=== PATIENT | female | born 1970 | race Caucasian/White ===

== ENCOUNTER → 2017-11-30 08:37 | Outpatient (CLI) | payer BC, SELFPAY ==
--- NOTE | 2017-11-30 08:41 | MM_ITS ---
MM Dig screening mamm BI w/CAD CAD Screening COMPARISON: Digital mammograms 10/13/2016 and 09/24/2015 INDICATION: There is a history of breast cancer patient maternal aunt diagnosed in her 40s. There has been a previous biopsy right breast for benign disease. TECHNIQUE: Standard CC and MLO images were obtained. R2 CAD reviewed. FINDINGS: There is a markedly dense and heterogenic parenchymal pattern lessening the sensitivity of mammography. There are diffuse microcalcifications in the central portions of both breast typical of sclerosing adenosis. There is an oval asymmetric density central portion left breast best seen on the CC view and not definitely seen on the MLO view but likely lower central portion of the breast. Recommend follow-up ultrasound left breast for additional evaluation. There are no suspicious microcalcifications. IMPRESSION: Markedly dense parenchymal pattern with possible developing asymmetric density left breast BI-RADS Category: 0 Need Additional Imaging Evaluaiton RECOMMENDED FOLLOW-UP: IMM - IMMEDIATE FOLLOW-UP RECOMMENDED (A letter has been sent to the patient regarding results of the study.)
== END ==
PROVIDERS: PCP Family Medicine; Visit Provider Obstetrics & Gynecology
DX: Z12.31 Encounter for screening mammogram for malignant neoplasm of breast (principal)
CPT/HCPCS: 77067

== ENCOUNTER → 2017-12-21 13:06 | Outpatient (CLI) | payer BC, SELFPAY ==
--- NOTE | 2017-12-21 13:13 | US_ITS ---
US breast LT complete COMPARISON: 11/30/2017 mammogram INDICATION: Follow-up abnormal mammogram ORDERING PHYSICIAN: Eduardo Soni MD PATIENT AGE: 47 years TECHNIQUE: Standard ultrasound of the breast with axilla FINDINGS: Multiple cysts are present involving the left breast the largest at 12:00 measuring 18 x 19 mm somewhat lobular in nature. This likely corresponds to the nodule noted on mammogram. There is an 8 mm cyst at 9:00 15 mm cyst at 11:00 and a 9 mm cyst at 11:00. No suspicious nodules are evident. IMPRESSION: Multiple left breast cysts the largest of which may correspond to the mammographic abnormality. BI-RADS Category: 3 Benign Finding Short Term Follow-up RECOMMENDED FOLLOW-UP: 6M - 6 MONTH FOLLOW-UP recommended 6 month mammographic and sonographic follow-up (A letter has been sent to the patient regarding results of the study.)
== END ==
PROVIDERS: PCP Family Medicine; Visit Provider Obstetrics & Gynecology
DX: R92.8 Other abnormal and inconclusive findings on diagnostic imaging of breast (principal); N63.20 Unspecified lump in the left breast, unspecified quadrant
CPT/HCPCS: 76641

== ENCOUNTER → 2018-05-31 13:01 | Outpatient (CLI) | payer BC, SELFPAY ==
--- NOTE | 2018-05-31 13:03 | MM_ITS ---
MM Dig mamm DX unilat LT CAD, US breast LT complete INDICATION: Follow-up abnormal mammogram, 6 month follow-up ORDERING PHYSICIAN: Eduardo Soni MD PATIENT AGE: 48 years COMPARISON: None TECHNIQUE: Standard images performed with spot compression views and left breast ultrasound FINDINGS: Left mammogram: There is dense fibroglandular tissue decrease in sensitivity of mammography. Scattered multiple benign-appearing calcifications are present. There is a persistent 2.2 cm nodular lesion at 12:00 to to 1:00 similar to the previous exam. Left breast ultrasound: 2.2 x 1.2 cm cyst at 12:00 slightly increased in size compared to the previous exam. There are multiple other cysts including a 6 mm cyst at 12:00, 1 cm complex cyst at 12:00, 9 mm cyst at 3:00, complex 7 mm cyst at 4:00, complex 7 mm cyst at 6:00, 5 mm cyst at 9:00, 12 mm cyst at 11:00 and a 14 mm cyst at 11:00. No suspicious lesions evident. IMPRESSION: No convincing evidence of malignancy. Multiple left breast cysts BI-RADS Category: 2 Benign Finding(s) RECOMMENDED FOLLOW-UP: 6M - 6 MONTH FOLLOW-UP (A letter has been sent to the patient regarding results of the study.)
== END ==
PROVIDERS: PCP Family Medicine; Visit Provider Obstetrics & Gynecology
DX: R92.8 Other abnormal and inconclusive findings on diagnostic imaging of breast (principal)
CPT/HCPCS: 76641; 77065

== ENCOUNTER → 2018-12-06 09:48 | Outpatient (CLI) | payer BC, SELFPAY ==
--- NOTE | 2018-12-06 09:50 | MM_ITS ---
MM Dig screening mamm BI w/CAD CAD Screening COMPARISON: Digital mammograms with CAD 11/30/2017 and 6 month follow-up mammogram left breast 05/31/2018 INDICATION: There is a history of breast cancer patient maternal aunt diagnosed in her 40s. There has been a previous cyst aspiration right breast for benign disease. TECHNIQUE: Standard CC and MLO images were obtained. R2 CAD reviewed. FINDINGS: Prominent diffuse heterogenic fibroglandular densities are seen throughout both breast. The dominant asymmetric density central portion left breast seen on the previous study 11/30/2017 is less prominent on today's study and probably was a cyst which may have spontaneously partially decompressed. Again noted are multiple benign-appearing microcalcifications in each breast most of which appear to be typical of sclerosing adenosis. There is no new or suspicious lesion in either breast and there are no suspicious microcalcifications. There are partially fatty replaced nodes in both axilla. IMPRESSION: Stable dense and heterogenic parenchymal pattern with no suspicious lesion seen BI-RADS Category: 2 Benign Finding(s) RECOMMENDED FOLLOW-UP: 1YR - 1 YEAR FOLLOW-UP (A letter has been sent to the patient regarding results of the study.)
--- NOTE | 2018-12-06 09:50 | US_ITS ---
US transvaginal Ordering Physician: Eduardo Soni MD Patient Age: 48 years: Female HISTORY: ITS.REASON: pelvic painpelvic pain and discomfort. Menopause. Fatigue. LMP 4 years ago. TECHNIQUE: Transvaginal pelvic ultrasound COMPARISON : FINDINGS Uterus is enlarged.. No uterine mass is identified. Uterus Measures 9.9 cm length x 3.4 cm AP x6.7 wide. Endometrial stripe is 6.5 mm AP. Right ovary measures 4.25 cm x 2.6 cm x 3.1 cm. . It contains a dominant cyst which measures up to 2.85 x 2 cm. Along with some a few other tiny follicles. Left ovary measures 3.8 cm x 2.6 cm x 2.7 similar A dominant cyst at the left ovary measures 2.6 x 1.9 cm No fluid in cul-de-sac . IMPRESSION: 1. Uterus is enlarged. No fibroids identified nor appreciated. Moderate endometrial stripe 6.5 mm. 2. Ovaries are generous in size with cyst bilaterally. Right ovary measures up to 4.25 cm maximally & contains a 2.8 cm cyst Left ovary measures up to 3.8 cm and contains a 2.6 cm dominant cyst. No fluid in cul-de-sac
== END ==
PROVIDERS: PCP Family Medicine; Visit Provider Obstetrics & Gynecology
DX: Z12.31 Encounter for screening mammogram for malignant neoplasm of breast (principal); R10.2 Pelvic and perineal pain
CPT/HCPCS: 76830; 77067

== ENCOUNTER → 2019-01-17 13:42 | Outpatient (CLI) | payer BC, SELFPAY ==
--- NOTE | 2019-01-17 13:46 | US_ITS ---
US transvaginal Ordering Physician: Eduardo Soni MD Patient Age: 48 years: Female HISTORY: ITS.REASON: pelvic painc follow-up ultrasound from November enlarged uterus and ovaries. TECHNIQUE: Transvaginal pelvic ultrasound. Pelvic pain history.] MW COMPARISON : Previous pelvic ultrasound from December 06, 2017. Relevant FINDINGS The uterus appears mildly enlarged measuring 10.7 cm in length and 5.2 cm AP X 7.5 cm wide. There is a vague fundal fibroid seen at the uterus identified by the technologist on today's study,-difficult to discern but appears to measure3.6 x 2.6 cm x 3 cm The endometrium appears thickened measuring up to 10 mm AP as seen on the final image. Small simple cyst is seen in each ovary with good blood flow at color Doppler flow to both ovaries. No free fluid in cul-de-sac. Right ovary 3.6 x 2.55 x 2.8 cm A 1.9 x 1.5 cm single dominant cyst at the right ovary laterally On the previous right ovarian cyst cyst measures up to 2.5 cm-likely decreased in size Left ovary 3.25 x 2.3 cm x 2.4 cm. There is a 1.1 cm x 0.9 cm single dominant cyst at the left ovary. IMPRESSION: ... ... Uterus enlarged. 10.7 cm in length x 7.5 cm wide ... Vague poorly delineated Fibroid at the right aspect of fundus felt to be present on today's study. Measuring 3.6 to 2.6 cm. Thickened endometrium measures up to 1.0 cm AP Ovaries appear normal in size.... With Single cyst identified bilaterally: Right ovarian cyst 1.9 x 0.5 cm. Left ovarian cyst 1.1 x 1 cm.
== END ==
PROVIDERS: PCP Family Medicine; Visit Provider Obstetrics & Gynecology
DX: R10.2 Pelvic and perineal pain (principal)
CPT/HCPCS: 76830

== ENCOUNTER → 2019-04-25 13:40 | Outpatient (CLI) | payer BC, SELFPAY ==
--- NOTE | 2019-04-25 13:42 | US_ITS ---
US transvaginal HISTORY: ITS.REASON: PELVIC PAIN ORDERING PHYSICIAN: Eduardo Soni MD PATIENT AGE: 49 years Comparison: 01/17/2019 FINDINGS: The uterus is bulky measuring 11 x 5 x 7 cm. Combined endometrial thickness is 9 mm. Within the central aspect of the endometrial region there is an oval area of slight increase echogenicity measuring 7 mm x 4 mm and may represent a small polyp. A fibroid is present in the fundus at 2.9 cm. The right ovary is 3.2 x 2 cm and contains a 2.6 cm cyst. The left ovary is 3.3 x 2.5 cm and contains a 2 cm cyst. No cul-de-sac fluid is evident. IMPRESSION: Enlarged uterus with fundal fibroid. Possible small endometrial polyp. Bilateral ovarian cysts which is slightly increased in size compared to 01/17/2019
== END ==
PROVIDERS: PCP Registered Nurse; Visit Provider Obstetrics & Gynecology
DX: R10.2 Pelvic and perineal pain (principal)
CPT/HCPCS: 76830

== ENCOUNTER → 2019-06-13 08:07 | Outpatient (CLI) | payer BC, SELFPAY | PROVIDERS: PCP Family Medicine; Visit Provider Family Medicine | DX: I10 Essential (primary) hypertension (principal); R60.9 Edema, unspecified | CPT/HCPCS: 93306 ==

== ENCOUNTER → 2019-08-15 15:14 | Outpatient (CLI) | payer BC, SELFPAY ==
--- NOTE | 2019-08-15 15:16 | MR_ITS ---
PROCEDURE: MR LUMBAR SPINE WO CON CLINICAL INDICATION: ACUTE BILATERAL LOW BACK PAIN WITH RT SIDED SCIATICA Low back pain with right-sided sciatica, right hip and calf pain COMPARISON: No exams were available for comparison TECHNIQUE: Standard multiplanar multiecho sequences are performed without contrast. 3-D MIP and myelographic images are also rendered and reviewed FINDINGS: There is normal alignment. The spinal cord ends at the L1-L2 level. T12-L1, L1-L2, and L2-L3 have an unremarkable appearance. L3-L4: There is minimal foraminal disc protrusion on the left at L3-L4 versus partial volume averaging artifact. L4-5: Mild concentric bulging disc with small central disc protrusion very slightly eccentric to the left abutting the left L5 nerve root. L5-S1: Unremarkable. No extruded herniated disc or canal stenosis. There is a 2.6 cm cystic area in the right pelvic region consistent with an ovarian cyst. There may be a smaller cyst on the left at 1.4 cm. IMPRESSION: 1. L3-L4: There is minimal foraminal disc protrusion on the left at L3-L4 versus partial volume averaging artifact. 2. L4-5: Mild concentric bulging disc with small central disc protrusion very slightly eccentric to the left abutting the left L5 nerve root 3. No extruded herniated disc or canal stenosis Dictated by: Julian Tillman MD 08/17/2019 06:12 Electronically signed by Julian Tillman MD in [place] 08/17/2019 06:12
== END ==
PROVIDERS: PCP Family Medicine; Visit Provider Family Medicine
DX: M54.41 Lumbago with sciatica, right side (principal); M51.36 Other intervertebral disc degeneration, lumbar region
CPT/HCPCS: 72148; 76376

== ENCOUNTER → 2019-09-05 10:14 | Outpatient (POV) | payer BC, SELFPAY ==
[2019-09-05 10:30] VITALS: BP 175/79; PULSE 85; RESP 18; O2SAT 98; BMI 38.9
--- NOTE | 2019-09-05 14:37 | HMH.PMCON ---
Assessment and Plan (1) Degenerative disc disease Current visit: Yes Status: Chronic Qualifiers: Spinal region: lumbar Qualified Code(s): M51.36 - Other intervertebral disc degeneration, lumbar region Category: Medical (2) Radiculopathy due to lumbar intervertebral disc disorder Current visit: Yes Status: Chronic Category: Medical Code(s): M51.16 - Intervertebral disc disorders with radiculopathy, lumbar region - Assessment and plan all Dx Assessment and Plan for all problems:: We will schedule an L4-L5 lumbar epidural steroid injection with the patient I do believe it would be beneficial given her symptomology. She is continuing anti-inflammatories and physical therapy. Patient is not on any anticoagulation therapy. She has no active infections. We will also start the patient on gabapentin 100 mg 1 p.o. nightly. I will follow-up with patient after her injection reassess her symptoms at that time she has been instructed to call the office if she has any issues prior to her next appointment. Dr. Hare has reviewed this note and agrees with this plan of care. This note was dictated using voice recognition software and may contain errors or omissions HPI - Data of Consult Consult date: 09/05/19 Requesting Physician: Dayan Diaz APRN Primary Care Provider: Jairo Rivera MD - Consult Narrative Reason for consult: Back pain, leg pain History of present illness: Ms. Owens is a 49 year old female who presents today for consultation in regards to her low back and leg pain. Patient has had pain for quite some years however recently she is had excruciating low back and right leg pain. Patient states any increased activity increases pain while rest and Aleve decrease pain. Patient has radiation down into her toes. She has numbness and tingling. She currently works at [employer]. Patient has been trying to work however it is becoming harder and harder. She rates her pain a 3 out of 10. She is on an anti-inflammatory. Patient is continuing physical therapy at this time with dry needling and stretching. She is interested in injective therapy. CC: Dayan Diaz APRN [facility] History I have reviewed the patient's past medical history: Yes Medical History: Reports:: Hypertension *Have you ever received a pneumonia vaccine?: Yes *Have you received a flu vaccine this season?: Yes Amputation: No Fractures: No - *Social History Smoking Status: Never smoker Alcohol Intake: never Alcohol Intake Frequency:: other Substance Use Type: denies use *Occupational Status:: employed Housing: house Household Members: other *Travel in the last 8 weeks: None Family Hx:: No significant family history Review of Systems - Review of Systems ROS General: no recent weight change, no fever, no sleep disturbances Respiratory: no cough, no shortness of air, no recurring pulmonary infections Cardiovascular/Peripheral Vascular: No chest pain, No palpitations, no edema, no shortness of breath. Gastrointestinal: no new onset incontinence, normal bowel movements reported Genitourinary: no new onset incontinence Musculoskeletal: Back pain, leg pain Psychiatric: normal mood/ affect, Neurological: [denies new onset weakness in extremities], [denies new onset balance issues] Meds Home Medications Medication Instructions Recorded Confirmed Type estradiol 2 mg tablet 2 mg PO DAILY #30 tab NS 01/18/18 01/31/19 Rx benzonatate 100 mg capsule 100 mg PO TID PRN #30 cap 10/02/18 01/31/19 Rx fenofibrate 160 mg tablet 160 mg PO DAILY 10/02/18 06/18/19 History fluticasone propionate 50 1 spray INTRANASAL DAILY #16 g 10/02/18 01/31/19 Rx mcg/actuation nasal spray,suspension lisinopril 10 mg tablet 10 mg PO DAILY 10/02/18 06/18/19 History medroxyprogesterone 2.5 mg tablet 2.5 mg PO DAILY 10/02/18 01/31/19 History omeprazole 20 mg capsule,delayed 20 mg PO DAILY 10/02/18 06/18/19 History release t
--- NOTE | 2019-09-05 14:40 | P.CONS_ITS ---
Assessment and Plan (1) Degenerative disc disease Current visit: Yes Status: Chronic Qualifiers: Spinal region: lumbar Qualified Code(s): M51.36 - Other intervertebral disc degeneration, lumbar region Category: Medical (2) Radiculopathy due to lumbar intervertebral disc disorder Current visit: Yes Status: Chronic Category: Medical Code(s): M51.16 - Intervertebral disc disorders with radiculopathy, lumbar region - Assessment and plan all Dx Assessment and Plan for all problems:: We will schedule an L4-L5 lumbar epidural steroid injection with the patient I do believe it would be beneficial given her symptomology. She is continuing anti-inflammatories and physical therapy. Patient is not on any anticoagulation therapy. She has no active infections. We will also start the patient on gabapentin 100 mg 1 p.o. nightly. I will follow-up with patient after her injection reassess her symptoms at that time she has been instructed to call the office if she has any issues prior to her next appointment. Dr. Hare has reviewed this note and agrees with this plan of care. This note was dictated using voice recognition software and may contain errors or omissions HPI - Data of Consult Consult date: 09/05/19 Requesting Physician: Dayan Diaz APRN Primary Care Provider: Jairo Rivera MD - Consult Narrative Reason for consult: Back pain, leg pain History of present illness: Ms. Owens is a 49 year old female who presents today for consultation in regards to her low back and leg pain. Patient has had pain for quite some years however recently she is had excruciating low back and right leg pain. Patient states any increased activity increases pain while rest and Aleve decrease pain. Patient has radiation down into her toes. She has numbness and tingling. She currently works at [employer]. Patient has been trying to work however it is becoming harder and harder. She rates her pain a 3 out of 10. She is on an anti-inflammatory. Patient is continuing physical therapy at this time with dry needling and stretching. She is interested in injective therapy. CC: Dayan Diaz APRN [facility] History I have reviewed the patient's past medical history: Yes Medical History: Reports:: Hypertension *Have you ever received a pneumonia vaccine?: Yes *Have you received a flu vaccine this season?: Yes Amputation: No Fractures: No - *Social History Smoking Status: Never smoker Alcohol Intake: never Alcohol Intake Frequency:: other Substance Use Type: denies use *Occupational Status:: employed Housing: house Household Members: other *Travel in the last 8 weeks: None Family Hx:: No significant family history Review of Systems - Review of Systems ROS General: no recent weight change, no fever, no sleep disturbances Respiratory: no cough, no shortness of air, no recurring pulmonary infections Cardiovascular/Peripheral Vascular: No chest pain, No palpitations, no edema, no shortness of breath. Gastrointestinal: no new onset incontinence, normal bowel movements reported Genitourinary: no new onset incontinence Musculoskeletal: Back pain, leg pain Psychiatric: normal mood/ affect, Neurological: [denies new onset weakness in extremities], [denies new onset balance issues] Meds Home Medications Medication Instructions Recorded Confirmed Type estradiol 2 mg tablet 2 mg PO DAILY #30 tab NS 01/18/18 01/31/19 Rx benzonatate 100 mg capsule 100 mg PO TID PRN #30
== END ==
PROVIDERS: PCP Family Medicine; Visit Provider Clinical Nurse Specialist Family Health
DX: M51.16 Intervertebral disc disorders with radiculopathy, lumbar region (principal)
CPT/HCPCS: 99202

== ENCOUNTER → 2019-10-17 11:22 | Outpatient (POV) | payer BC, SELFPAY ==
--- NOTE | 2019-10-17 11:41 | HMH.PAINSOAP ---
[facility] Pain Management SOAP Note Subjective:: Patient is a pleasant 49-year-old white female who presents today for follow-up after a lumbar epidural steroid injection at L4-L5. She is being treated for low back pain with lumbar radiculopathy symptoms. Patient says that she got approximately 90% relief following her epidural steroid injection, however, patient does say her pain has returned. She says she got approximately 2 weeks of relief. Patient rates her pain a 3 out of 10 today. She says her pain is a low when she is sitting. She says her pain does return when she is walking or standing. 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 This is when her pain increases. Patient says that she is interested in doing a series of injections to see if she can get longer relief. She has been taking naproxen at home and says it has helped her some relief. Patient was also prescribed gabapentin 100 mg 1 tablet p.o. at bedtime at her last visit. Patient says that she has not taken this for fear that it would make her too sleepy. She says her pain is radiating into her right leg causing numbness and tingling. SHe is continuing with a home stretching program. Review of Systems General: No recent weight changes, no fever, no sleep disturbances Respiratory: No cough, no shortness of air, no recurring pulmonary infections Cardiovascular/peripheral vascular: No chest pain, no palpitations, no edema, no shortness of breath Gastrointestinal: No new onset incontinence, normal bowel movements reported Genitourinary: No new onset incontinence Musculoskeletal: Low back pain, right leg pain Psychiatric: Normal mood/affect Neurological: [Denies weakness in extremities], [denies balance issues] Objective:: Physical exam General: Alert and oriented x3, no acute distress, pleasant and cooperative, [on room air] Lungs: Respirations even and unlabored, symmetrical chest expansion Eyes: PERRL Musculoskeletal: Flexion and extension of lumbar spine somewhat guarded secondary to pain, deep tendon reflexes normal, strength in upper and lower extremities [5/5], [abnormal gait noted] Neurological: Speech clear, 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 She is not on any anticoagulation therapy. She will continue with a home stretching program. We will also order the patient diclofenac 75 mg 1 tablet p.o. twice daily. She has been instructed to not continue taking naproxen with her diclofenac. The patient is in agreement. We will see her back in the clinic following her injection to reassess her symptoms. Patient is also been instructed to take her gabapentin at bedtime to see if she gets relief with her numbness and tingling to her right leg. Patient has been instructed to contact the clinic if she has any concerns before her next appointment. Dr. Hare has reviewed this note and agrees with this plan of care. This note was dictated using voice recognition software and make contain errors or omissions. [facility] History I have reviewed the patient's past medical history: Yes Medical History: Reports:: Hyperlipidemia, Hypertension Denies:: Diabetes Mellitus Type 1, Diabetes Mellitus Type 2, Seizures *Have you ever received a pneumonia vaccine?: No *Have you received a flu vaccine this season?: No Amputation: No Fractures: No - *Social History Smoking Status: Never smoker Alcohol Intake: never Alcohol Intake Frequency:: other Substance Use Type: denies use *Occupational Status:: employed Housing: house Household Members: spouse, children *Travel in the last 8 weeks: None Family Hx:: No significant family history
[2019-10-17 11:44] VITALS: BP 194/85; PULSE 78; RESP 18; O2SAT 99; BMI 31.3
== END ==
PROVIDERS: PCP Family Medicine; Visit Provider Clinical Nurse Specialist Family Health
DX: M51.16 Intervertebral disc disorders with radiculopathy, lumbar region (principal)
CPT/HCPCS: 99212

== ENCOUNTER → 2019-11-07 13:13 | Outpatient (CLI) | payer BC, SELFPAY ==
--- NOTE | 2019-11-07 13:14 | US_ITS ---
PROCEDURE: US TRANSVAGINAL CLINICAL INDICATION: pelvic pain COMPARISON: TRANVAG US transvaginal from 04/25/2019 FINDINGS: UTERUS: 7.7 x 5.3x 11.4 centimeter with a combined endometrial thickness of 1.51 LEFT OVARY: 2.1x2.7x2.2 with a volume of 6.9ml. RIGHT OVARY: 3.2x 4.7x2.4 with a volume of 21.4. Cystic lesion in the right adnexa 2.1 x 1.6 x 2.1 centimeters is noted and there is a septated complicated right ovarian cyst 1.8 x 1.7 x 2.0 centimeters. Functional ovarian cysts may be responsible. Follow-up is recommended in attempt to document resolution and exclude cystic neoplasm or endometrioma. An focal endometrial echogenicity possibly endometrial polyp 7.0 x 5.8 millimeters is apparent. Fundal fibroid 3.7 x 3.2 x 2.8 centimeters is noted. This measured approximately 3.6 x 2.6 centimeters on previous exam 01/17/2019. IMPRESSION: Continued uterine fibroid. Right adnexal cystic lesions likely of ovarian origin. Continued follow-up recommended. Possible endometrial polyp. Dictated by: Real Truong 11/07/2019 17:10 Electronically signed by Real Truong in [place] 11/07/2019 17:10
== END ==
PROVIDERS: PCP Family Medicine; Visit Provider Obstetrics & Gynecology
DX: R10.2 Pelvic and perineal pain (principal)
CPT/HCPCS: 76830

== ENCOUNTER → 2019-11-21 10:02 | Outpatient (POV) | payer BC, SELFPAY ==
[2019-11-21 10:18] VITALS: BP 175/80; PULSE 71; RESP 18; O2SAT 99; BMI 37.2
--- NOTE | 2019-11-21 10:43 | HMH.PAINSOAP ---
[facility] Pain Management SOAP Note Subjective:: Patient is a pleasant 49-year-old white female who presents today for follow-up after lumbar epidural steroid injection. This is her second injection. Patient states that she did not get much relief from it. However she is having a new more focal low back pain. She is not having any radicular symptoms anymore in regards to her legs. Patient does have a positive Kemps sign and facet loading her lumbar spine. Patient may be a candidate for neurotomy. She rates her pain today a 5 out of 10. Mostly in her low back. ROS General: no recent weight change, no fever, no sleep disturbances Respiratory: no cough, no shortness of air, no recurring pulmonary infections Cardiovascular/Peripheral Vascular: No chest pain, No palpitations, no edema, no shortness of breath. Gastrointestinal: no new onset incontinence, normal bowel movements reported Genitourinary: no new onset incontinence Musculoskeletal: Back pain Psychiatric: normal mood/ affect Neurological: [denies new onset weakness in extremities], [denies new onset balance issues] Objective:: Physical Exam General: Alert and oriented x3, no acute distress, pleasant and cooperative, [on room air] Lungs: Resps E/U, Symmetrical chest expansion, Eyes: PERRL Musculoskeletal: Flexion and extension of lumbar spine somewhat guarded secondary to pain, deep tendon reflexes normal, strength in upper and lower extremities [5/5], slightly antalgic gait noted Neurological: speech clear, global sales director equal, no gross sensory deficits Assessment:: 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 Patient understands that this is diagnostic in nature. She is continuing a home stretching program. She is failed other modalities of treatment including physical therapy and anti-inflammatories along with medications. She is continuing gabapentin 100 mg 1 p.o. nightly she states it is beneficial she and I discussed adding 1 more pill in the morning she is going to try this and see if it is beneficial. I will follow-up with her after injection reassess her symptoms at that time she has been instructed to call the office if she has any issues prior to her next appointment. She is not on any anticoagulation therapy. Dr. Hare has reviewed this note and agrees with this plan of care. This note was dictated using voice recognition software and may contain errors or omissions [facility] History I have reviewed the patient's past medical history: Yes Medical History: Reports:: Hyperlipidemia, Hypertension Denies:: Cancer, Diabetes Mellitus Type 1, Diabetes Mellitus Type 2, Seizures *Have you ever received a pneumonia vaccine?: Yes *Have you received a flu vaccine this season?: Yes Other Surgeries: Yes: Amputation: No Fractures: No - *Social History Smoking Status: Never smoker Alcohol Intake: never Alcohol Intake Frequency:: other Substance Use Type: denies use *Occupational Status:: other Housing: house Household Members: spouse, children *Travel in the last 8 weeks: None Family Hx:: No significant family history
== END ==
PROVIDERS: PCP Family Medicine; Visit Provider Clinical Nurse Specialist Family Health
DX: M51.16 Intervertebral disc disorders with radiculopathy, lumbar region (principal); M47.816 Spondylosis without myelopathy or radiculopathy, lumbar region; M54.06 Panniculitis affecting regions of neck and back, lumbar region; Z79.899 Other long term (current) drug therapy
CPT/HCPCS: 99212

== ENCOUNTER → 2019-12-22 09:07 | Outpatient (CLI) | payer BC, SELFPAY ==
[2019-12-22 09:39] LABS: Basophils # 0.1 K/mm3 (0-0.2); Basophils % 0.8 % (0.1-2.0); Eosinophils # 0.2 K/mm3 (0.0-0.4); Eosinophils % 2.8 % (0.1-12.0); Hematocrit 39.2 % (37.0-47.0); Hemoglobin 12.7 g/dL (12.2-16.2); Lymphocytes # 1.7 K/mm3 (0.7-4.5); Lymphocytes % 21.3 % (10-50); Mean Corpuscular HGB Conc 32.3 g/dL (31.8-35.4); Monocytes # 0.4 K/mm3 (0.1-1.0); Monocytes % 5.2 % (1.7-9.3); Neutrophils # 5.5 K/mm3 (1.8-7.8); Neutrophils % 69.8 % (37.0-80.0); Platelet Count 412 K/mm3 (142-424); Red Blood Count 4.22 M/mm3 (4.20-5.40); Red Cell Distribution Width 13.2 % (11.5-17.5); Urine Pregnancy, HCG Qual. Negative (Negative); White Blood Count 7.9 K/mm3 (4.8-10.8)
[2019-12-22 10:11] LABS: Chloride 102 mmol/L (98-107); Potassium 4.4 mmoL/L (3.5-5.1); Sodium 139 mmol/L (136-145)
[2019-12-22 10:13] LABS: Alanine Aminotransferase 36 U/L (12-78); Aspartate Amino Transferase 40 U/L (14-36); Blood Urea Nitrogen 23 mg/dl (7-17); Estimated Glomerular Filt Rate 89 ml/min (>60); GFR (African American) 108 ML/MIN (>60)
[2019-12-22 10:14] LABS: Albumin Level 4.5 g/dl (3.5-5.0); Albumin/Globulin Ratio 1.7 (1.1-1.8); Alkaline Phosphatase 75 U/L (38-126); Anion Gap 13.4 mEq/L (5-15); Bilirubin,Total 0.4 mg/dl (0.2-1.3); Calcium 9.7 mg/dl (8.4-10.2); Carbon Dioxide 28 mmol/L (22.0-30.0); Globulin 2.6 g/dL (1.3-3.2); Glucose 131 mg/dl (74-100); Total Protein,Serum 7.1 g/dl (6.3-8.2)
== END ==
PROVIDERS: Visit Provider Obstetrics & Gynecology
DX: Z01.818 Encounter for other preprocedural examination (principal)
CPT/HCPCS: 36415; 80053; 81025; 85025

== ENCOUNTER → 2020-01-02 14:48 | Outpatient (POV) | payer BC, SELFPAY ==
[2020-01-02 15:32] VITALS: BP 189/92; PULSE 79; RESP 18; O2SAT 99; BMI 40.2
--- NOTE | 2020-01-03 08:43 | HMH.PAINSOAP ---
[facility] Pain Management SOAP Note Subjective:: Patient is a pleasant 49-year-old white female who presents today for follow-up after her medial branch block at L4-L5 L5-S1. Patient did extremely well with that she got over 80% relief of her symptoms. She rates her pain today 4 out of 10. Patient is a neurotomy candidate. She is interested in moving forward with this process. I discussed with the patient we may have to repeat medial branch blocks prior to this per insurance regulations. She is also on gabapentin 100 mg which is not very beneficial for her. We discussed increasing this until we can have her injection scheduled. She is not on any anticoagulation therapy. She does have a positive Kemps test. Her pain is extremely focal in nature. ROS General: no recent weight change, no fever, no sleep disturbances Respiratory: no cough, no shortness of air, no recurring pulmonary infections Cardiovascular/Peripheral Vascular: No chest pain, No palpitations, no edema, no shortness of breath. Gastrointestinal: no new onset incontinence, normal bowel movements reported Genitourinary: no new onset incontinence Musculoskeletal: Back pain Psychiatric: normal mood/ affect Neurological: [denies new onset weakness in extremities], [denies new onset balance issues] Objective:: Physical Exam General: Alert and oriented x3, no acute distress, pleasant and cooperative, [on room air] Lungs: Resps E/U, Symmetrical chest expansion, Eyes: PERRL Musculoskeletal: Flexion and extension of lumbar spine somewhat guarded secondary to pain, deep tendon reflexes normal, strength in upper and lower extremities [5/5], normal gait noted, Positive Kemps test, positive facet loading Neurological: speech clear, relief man equal, no gross sensory deficits Assessment:: Degenerative disc disease lumbar spine with lumbar spondylosis facet arthropathy lumbar spine Plan:: We will repeat the L4-L5 L5-S1 bilateral medial branch blocks given the efficacy of the last one I do believe it would be beneficial. She is a neurotomy candidate. She is not on any anticoagulation therapy. We will also increase her gabapentin to 3 mg 1 p.o. 3 times daily. Patient's been instructed to call the office if she has any issues prior to her next appointment. Dr. Hare has reviewed this note and agrees with this plan of care. This note was dictated using voice recognition software and may contain errors or omissions [facility] History I have reviewed the patient's past medical history: Yes Medical History: Reports:: Hyperlipidemia, Hypertension Denies:: Cancer, Diabetes Mellitus Type 1, Diabetes Mellitus Type 2, Seizures *Have you ever received a pneumonia vaccine?: Yes *Have you received a flu vaccine this season?: Yes Other Surgeries: Yes: Amputation: No Fractures: No - *Social History Smoking Status: Never smoker Alcohol Intake: never Alcohol Intake Frequency:: other Substance Use Type: denies use *Occupational Status:: other Housing: house Household Members: spouse, children *Travel in the last 8 weeks: None Family Hx:: No significant family history
== END ==
PROVIDERS: PCP Family Medicine; Visit Provider Clinical Nurse Specialist Family Health
DX: M51.36 Other intervertebral disc degeneration, lumbar region (principal); M54.06 Panniculitis affecting regions of neck and back, lumbar region; M47.816 Spondylosis without myelopathy or radiculopathy, lumbar region
CPT/HCPCS: 99212

== ENCOUNTER 2020-03-23 09:28 | Day surgery (SDC) | payer BC, SELFPAY ==
[2020-03-23 09:50] VITALS: BP 190/80; PULSE 80; RESP 18; O2SAT 98; BMI 38.9
[2020-03-23 10:24] VITALS: BP 178/89; PULSE 78; RESP 18; TEMP 36.7; O2SAT 98
[2020-03-23 10:25] VITALS: BP 174/78; PULSE 88; RESP 18; O2SAT 99
[2020-03-23 10:40] VITALS: BP 171/82; PULSE 74; RESP 18; O2SAT 98
--- NOTE | 2020-03-23 10:52 | HMH.PMPROC ---
- Procedure Date: 03/23/20 Time: 10:53 Anesthesiologist:: Bean Hare MD Complications:: None Pre-procedure Diagnosis:: Degenerative disc disease of lumbar spine with lumbar spondylosis and facet arthropathy of lumbar spine Post-procedure Diagnosis:: Same Indications for Procedure:: This patient is a pleasant 50-year-old white female who we are treating for low back pain with lumbar spondylosis and facet arthropathy of lumbar spine. She is done very well with previous medial branch blocks of L4-5 and L5-S1 bilaterally. She was 80 to 90% better. She presents for repeat bilateral lumbar medial branch blocks of L4-5 and L5-S1 today. Procedure Details:: Lumbar medial branch block Informed consent was obtained and the risks and benefits of the procedure was explained to the patient. The back was prepped using ChloraPrep. The skin and subcutaneous tissues were anesthetized using lidocaine. I placed 22-gauge spinal needles into the facet joint/medial branches of L4-L5 and L5-S1 bilaterally. Needle placement was confirmed with dye. After this we injected 3 mL bupivacaine 0.25% and Depo-Medrol 20 mg into each facet joint/medial branch of L4-L5 and L5-S1 bilaterally. We used a total of 80 mg Depo-Medrol for both levels bilaterally. The patient tolerated the procedure well with no complications. Plan and Disposition:: We will follow-up with her in 2 weeks. Will reevaluate symptoms at that time.
== END 2020-03-23 10:40 | disposition home or self-care (01) ==
LOC: SC.PAINP 09:28
PROVIDERS: PCP Family Medicine; Visit Provider Anesthesiology
DX: M51.36 Other intervertebral disc degeneration, lumbar region (principal); M12.88 Other specific arthropathies, not elsewhere classified, other specified site; M47.816 Spondylosis without myelopathy or radiculopathy, lumbar region; I10 Essential (primary) hypertension; E78.5 Hyperlipidemia, unspecified
CPT/HCPCS: 64493; 64494; J1030; Q9966

== ENCOUNTER → 2020-04-09 10:07 | Outpatient (POV) | payer BC, SELFPAY ==
[2020-04-09 10:24] VITALS: BP 191/93; PULSE 85; RESP 18; TEMP 36.6; O2SAT 99; BMI 39.8
--- NOTE | 2020-04-09 10:54 | P.CONS_ITS ---
[facility] Pain Management SOAP Note Subjective:: Patient is a pleasant 50-year-old white female who presents today for follow-up after second medial branch block at L4-L5 L5-S1 bilaterally. She got 80% relief of her symptomology. She rates her pain today 2 out of 10. Patient has had 2 medial branch blocks and is a neurotomy candidate we will move forward with a RFA. She is not on any anticoagulation therapy. She is tried and failed conservative therapies including medications and anti-inflammatories. She is also tried and failed physical therapy and is continuing a home stretching program. She is also on gabapentin 300 mg 1 p.o. 3 times daily. We will refill this for her. She denies side effects from this. [facility] #[id number] reviewed and appropriate. ROS General: no recent weight change, no fever, no sleep disturbances Respiratory: no cough, no shortness of air, no recurring pulmonary infections Cardiovascular/Peripheral Vascular: No chest pain, No palpitations, no edema, no shortness of breath. Gastrointestinal: no new onset incontinence, normal bowel movements reported Genitourinary: no new onset incontinence Musculoskeletal: Back pain Psychiatric: normal mood/ affect Neurological: [denies new onset weakness in extremities], [denies new onset balance issues] Objective:: Physical Exam General: Alert and oriented x3, no acute distress, pleasant and cooperative, Lungs: Resps E/U, Symmetrical chest expansion, Eyes: PERRL Musculoskeletal: Flexion and extension of lumbar spine somewhat guarded secondary to pain, deep tendon reflexes normal, strength in upper and lower extremities [5/5], antalgic gait noted, positive facet loading lumbar spine Neurological: speech clear, strategic procurement manager equal, no gross sensory deficits Assessment:: Degenerative disc disease lumbar spine lumbar spondylosis facet arthropathy of lumbar spine Plan:: We will move forward with a L4-L5 L5-S1 radiofrequency ablation bilaterally. We will start with the right side and then 2 weeks later we will do the left side. I will follow-up with her after her ablation and reassess her symptoms at that time she has been instructed to call the office if she has any issues prior to her next appointment. We will continue her gabapentin 300 mg [address] p[address] Hare has reviewed this note and agrees with this plan of care. This note was dictated using voice recognition software and may contain errors or omissions [facility] History I have reviewed the patient's past medical history: Yes Medical History: Reports:: Diabetes Mellitus Type 2, Hyperlipidemia, Hypertension Denies:: Cancer, Diabetes Mellitus Type 1, MRSA, Seizures *Have you ever received a pneumonia vaccine?: Yes *Have you received a flu vaccine this season?: Yes Other Surgeries: Yes: Amputation: No Fractures: No - *Social History Smoking Status: Never smoker Alcohol Intake: never Alcohol Intake Frequency:: other Substance Use Type: denies use *Occupational Status:: other Housing: house Household Members: spouse, children *Travel in the last 8 weeks: None Family Hx:: No significant family history
== END ==
PROVIDERS: PCP Family Medicine; Visit Provider Clinical Nurse Specialist Family Health
DX: M51.36 Other intervertebral disc degeneration, lumbar region (principal); M47.816 Spondylosis without myelopathy or radiculopathy, lumbar region; M12.88 Other specific arthropathies, not elsewhere classified, other specified site
CPT/HCPCS: 99212

== ENCOUNTER 2020-04-27 11:13 | Day surgery (SDC) | payer BC, SELFPAY ==
[2020-04-27 11:40] VITALS: BP 190/84; PULSE 86; RESP 18; TEMP 36.3; O2SAT 96; BMI 39.3
--- NOTE | 2020-04-27 12:04 | HMH.PMPROC ---
- Procedure Date: 04/27/20 Time: 12:04 Anesthesiologist:: Bean Hare MD Complications:: None Pre-procedure Diagnosis:: Degenerative disc disease of lumbar spine with lumbar spondylosis and facet arthropathy of lumbar spine Post-procedure Diagnosis:: Same Indications for Procedure:: This patient is a pleasant 50-year-old white female who we are treating for low back pain with lumbar spondylosis and facet arthropathy of lumbar spine. She did well after medial branch blocks with 80% relief in her pain symptoms. Her pain is starting to return we will do radiofrequency ablation to the facet joint/medial branches of L4-5 and L5-S1 the right side today. Procedure Details:: Lumbar RFA informed consent was obtained and the risk and benefits of the procedure was explained to the patient. Patient was placed prone on the procedure table. The patient was prepped and draped in sterile fashion. C-arm fluoroscopy was used to view the lumbar spine. The skin and subcutaneous tissues were anesthetized using lidocaine. I placed 20-gauge RF needles into the facet joints of L4-5 and L5-S1 levels on the right side. We underwent sensory stimulation. There is good sensory stimulation at 0.8 V. We underwent motor stimulation. There is no motor stimulation at 2 V. We then anesthetized these levels with lidocaine and Depo-Medrol. I used a total of 40 mg Depo-Medrol for both levels. I then burned both levels of 4 5 and L5-S1 facet joint/medial branches on the right side for 4 minutes at 80 ?C. Patient tolerated the procedure well with no complication. Plan and Disposition:: We will follow-up with her in 2 weeks. Will reevaluate her symptoms at that time.
[2020-04-27 12:05] VITALS: BP 132/85; PULSE 85; RESP 18
[2020-04-27 12:06] VITALS: BP 132/88; PULSE 85; RESP 18; O2SAT 98
[2020-04-27 12:20] VITALS: BP 168/97; PULSE 78; RESP 20; O2SAT 96
== END 2020-04-27 12:20 | disposition home or self-care (01) ==
LOC: SC.PAINP 11:14
PROVIDERS: PCP Family Medicine; Visit Provider Anesthesiology
DX: M51.36 Other intervertebral disc degeneration, lumbar region (principal); M47.816 Spondylosis without myelopathy or radiculopathy, lumbar region; M12.88 Other specific arthropathies, not elsewhere classified, other specified site; I10 Essential (primary) hypertension; Z88.0 Allergy status to penicillin; Z79.899 Other long term (current) drug therapy; Z79.84 Long term (current) use of oral hypoglycemic drugs
CPT/HCPCS: 64635; 64636; J1040

== ENCOUNTER 2020-05-11 09:52 | Day surgery (SDC) | payer BC, SELFPAY ==
[2020-05-11 10:29] VITALS: BP 171/82; PULSE 73; RESP 18; TEMP 36.6; O2SAT 98; BMI 85.9
[2020-05-11 10:51] VITALS: BP 142/88; PULSE 85; RESP 18; O2SAT 98
--- NOTE | 2020-05-11 10:54 | HMH.PMPROC ---
- Procedure Date: 05/11/20 Time: 10:55 Anesthesiologist:: Bean Hare MD Complications:: None Pre-procedure Diagnosis:: Degenerative disc disease of lumbar spine with lumbar spondylosis and facet arthropathy of lumbar spine Post-procedure Diagnosis:: Same Indications for Procedure:: This patient is a pleasant 50-year-old white female who we are treating for low back pain with lumbar spondylosis and facet arthropathy of lumbar spine. She is status post radiofrequency ablation of the facet joints of L4-5 and L5-S1 on the right side. She is doing very well after this. She still has pain on the left side. She presents for RF ablation to the facet joint/medial branches of L4-5 and L5-S1 left side today. Procedure Details:: Lumbar RFA informed consent was obtained and the risk and benefits of the procedure was explained to the patient. Patient was placed prone on the procedure table. The patient was prepped and draped in sterile fashion. C-arm fluoroscopy was used to view the lumbar spine. The skin and subcutaneous tissues were anesthetized using lidocaine. I placed 20-gauge RF needles into the facet joints of L4-5 and L5-S1 levels on the left side. We underwent sensory stimulation. There is good sensory stimulation at 0.8 V. We underwent motor stimulation. There is no motor stimulation at 2 V. We then anesthetized these levels with lidocaine and Depo-Medrol. I used a total of 40 mg Depo-Medrol for both levels. I then burned both levels of L4-5 and L5-S1 facet joint/medial branches on the left side for 4 minutes at 80 ?C. Patient tolerated the procedure well with no complication. Plan and Disposition:: We will follow-up with her in 1 month. Will reevaluate symptoms at that time.
[2020-05-11 11:10] VITALS: BP 171/81; PULSE 71; RESP 18; O2SAT 98
== END 2020-05-11 11:10 | disposition home or self-care (01) ==
LOC: SC.PAINP 09:54
PROVIDERS: PCP Family Medicine; Visit Provider Anesthesiology
DX: M51.36 Other intervertebral disc degeneration, lumbar region (principal); M47.816 Spondylosis without myelopathy or radiculopathy, lumbar region; M12.88 Other specific arthropathies, not elsewhere classified, other specified site; K21.9 Gastro-esophageal reflux disease without esophagitis; I10 Essential (primary) hypertension; Z88.0 Allergy status to penicillin; Z79.899 Other long term (current) drug therapy
CPT/HCPCS: 64635; 64636; J1040

== ENCOUNTER → 2020-05-28 10:53 | Outpatient (POV) | payer BC, SELFPAY ==
--- NOTE | 2020-05-28 11:44 | HMH.PAINSOAP ---
[facility] Pain Management SOAP Note Subjective:: Is a pleasant 50-year-old white female who we are treating for low back pain with lumbar spondylosis and facet arthropathy lumbar spine. Patient just finished having RFA of the L4-L5 L5-S1 bilaterally. Patient states she rates her pain a 2 out of 10. She has had some increased pain since her procedure however she attributes to potentially her menstrual cycle. Patient and I discussed continuing improvement in regards to her RFA. We will follow-up with her in 1 month and reassess her at that time to ensure that she is doing better than prior to her neurotomy. ROS General: no recent weight change, no fever, no sleep disturbances Respiratory: no cough, no shortness of air, no recurring pulmonary infections Cardiovascular/Peripheral Vascular: No chest pain, No palpitations, no edema, no shortness of breath. Gastrointestinal: no new onset incontinence, normal bowel movements reported Genitourinary: no new onset incontinence Musculoskeletal: Back pain Psychiatric: normal mood/ affect Neurological: [denies new onset weakness in extremities], [denies new onset balance issues] Objective:: Physical Exam General: Alert and oriented x3, no acute distress, pleasant and cooperative, [on room air] Lungs: Resps E/U, Symmetrical chest expansion, Eyes: PERRL Musculoskeletal: Flexion and extension of lumbar spine somewhat guarded secondary to pain, deep tendon reflexes normal, strength in upper and lower extremities [5/5], normal gait noted Neurological: speech clear, business analytics faculty member equal, no gross sensory deficits Assessment:: Degenerative disc disease lumbar spine lumbar spondylosis facet arthropathy. Plan:: We will see the patient back in 4 weeks reassess her symptoms at that time she has been instructed to call the office if she has any issues prior to her next appointment. Dr. Hare has reviewed this note and agrees with this plan of care. This note was dictated using voice recognition software and may contain errors or omissions [facility] History I have reviewed the patient's past medical history: Yes Medical History: Reports:: Diabetes Mellitus Type 2, Hyperlipidemia, Hypertension Denies:: Cancer, Diabetes Mellitus Type 1, MRSA, Seizures *Have you ever received a pneumonia vaccine?: No *Have you received a flu vaccine this season?: No Other Surgeries: Yes: Amputation: No Fractures: No - *Social History Smoking Status: Never smoker Alcohol Intake: never Alcohol Intake Frequency:: other Substance Use Type: denies use *Occupational Status:: employed Housing: house Household Members: spouse, children *Travel in the last 8 weeks: None Family Hx:: No significant family history
[2020-05-28 12:20] VITALS: BP 142/78; PULSE 74; RESP 18; O2SAT 98; BMI 38.9
== END ==
PROVIDERS: PCP Family Medicine; Visit Provider Clinical Nurse Specialist Family Health
DX: M51.36 Other intervertebral disc degeneration, lumbar region (principal); M47.896 Other spondylosis, lumbar region; M12.88 Other specific arthropathies, not elsewhere classified, other specified site
CPT/HCPCS: 99212

== ENCOUNTER → 2020-08-20 09:33 | Outpatient (POV) | payer BC, SELFPAY ==
--- NOTE | 2020-08-20 10:08 | P.CONS_ITS ---
[facility] Pain Management SOAP Note Subjective:: Patient is a pleasant 50-year-old white female who presents today for follow-up after radiofrequency ablation of L4-L5 L5-S1 bilaterally. Patient is doing extremely well rating her pain today a 0 out of 10. She is taking her diclofenac and gabapentin as needed. Overall does not need anything today. ROS General: no recent weight change, no fever, no sleep disturbances Respiratory: no cough, no shortness of air, no recurring pulmonary infections Cardiovascular/Peripheral Vascular: No chest pain, No palpitations, no edema, no shortness of breath. Gastrointestinal: no new onset incontinence, normal bowel movements reported Genitourinary: no new onset incontinence Musculoskeletal: Back pain at times Psychiatric: normal mood/ affect, Neurological: [denies new onset weakness in extremities], [denies new onset balance issues] Objective:: Physical Exam General: Alert and oriented x3, no acute distress, pleasant and cooperative, [on room air] Lungs: Resps E/U, Symmetrical chest expansion, Eyes: PERRL Musculoskeletal: Flexion and extension of lumbar spine somewhat guarded secondary to pain, deep tendon reflexes normal, strength in upper and lower extremities [5/5], normal gait noted Neurological: speech clear, injection specialist equal, no gross sensory deficits Assessment:: Degenerative disc disease lumbar spine lumbar arthropathy, lumbar spondylosis Plan:: We will follow up with the patient on an as-needed basis. We will continue her gabapentin and her diclofenac at this time. In 3 months if she has not followed up we will see her for medication refills. She has been instructed to call the office if she has any issues prior to this. Dr. Hare has reviewed this note and agrees with this plan of care. This note was dictated using voice recognition software and may contain errors or omissions [facility] History I have reviewed the patient's past medical history: Yes Medical History: Reports:: Diabetes Mellitus Type 2, Hyperlipidemia, Hypertension Denies:: Cancer, Diabetes Mellitus Type 1, MRSA, Seizures *Have you ever received a pneumonia vaccine?: Yes *Have you received a flu vaccine this season?: Yes Other Surgeries: Yes: Amputation: No Fractures: No - *Social History Smoking Status: Never smoker Alcohol Intake: never Alcohol Intake Frequency:: other Substance Use Type: denies use *Occupational Status:: other Housing: house Household Members: spouse, children *Travel in the last 8 weeks: None Family Hx:: No significant family history
[2020-08-20 11:24] VITALS: BP 135/78; PULSE 74; RESP 18; O2SAT 98; BMI 39.8
== END ==
PROVIDERS: PCP Family Medicine; Visit Provider Clinical Nurse Specialist Family Health
DX: M51.36 Other intervertebral disc degeneration, lumbar region (principal); M47.816 Spondylosis without myelopathy or radiculopathy, lumbar region; M12.88 Other specific arthropathies, not elsewhere classified, other specified site
CPT/HCPCS: 99212

== ENCOUNTER → 2020-08-27 11:19 | Outpatient (CLI) | payer BC, SELFPAY ==
--- NOTE | 2020-08-27 11:23 | XR_ITS ---
PROCEDURE: XR FINGER RT MIN 2V CLINICAL INDICATION: RT THUMB PAIN COMPARISON: No exams were available for comparison FINDINGS: No fracture or dislocation. No lytic or blastic change. There is normal mineralization. Minimal osteoarthritic changes are present at the interphalangeal joint. No fracture or dislocation. No lytic or blastic change. Other findings:None. IMPRESSION: Minimal osteoarthritis of the interphalangeal joint Dictated by: Julian Tillman MD 08/27/2020 11:38 Julian Tillman MD in [facility] 08/27/2020 11:38
== END ==
PROVIDERS: PCP Family Medicine; Visit Provider Family Medicine
DX: M79.644 Pain in right finger(s) (principal)
CPT/HCPCS: 73140

== ENCOUNTER → 2020-09-03 14:29 | Outpatient (CLI) | payer BC, SELFPAY ==
--- NOTE | 2020-09-03 14:29 | US_ITS ---
PROCEDURE: US TRANSVAGINAL CLINICAL INDICATION: f/u US on right adnexal mass COMPARISON: US TRANVAG US transvaginal from 04/25/2019 FINDINGS: UTERUS: 9cm x 6cmx 4cm with a combined endometrial thickness of 7.6mm. There is an area of heterogeneous echogenicity in the fundal area of the uterus measuring 2.8 cm and may be due to fibroid not significantly changed. LEFT OVARY: [id number] with a volume of 8.4ml. RIGHT OVARY: [id number] with a volume of 7.9ml. There is a 2.5 cm cyst in the right adnexal region adjacent to the right ovary. No cul-de-sac fluid IMPRESSION: No change uterine fibroid. Small right adnexal cyst adjacent to the right ovary not significantly changed Dictated by: Julian Tillman MD 09/03/2020 17:30 Julian Tillman MD in [facility] 09/03/2020 17:30
== END ==
PROVIDERS: PCP Family Medicine; Visit Provider Obstetrics & Gynecology
DX: N94.89 Other specified conditions associated with female genital organs and menstrual cycle (principal)
CPT/HCPCS: 76830

== ENCOUNTER → 2020-09-10 13:08 | Outpatient (CLI) | payer BC, SELFPAY ==
--- NOTE | 2020-09-10 13:08 | MM_ITS ---
PROCEDURE: MM DIG SCREENING MAMM BI W/CAD Digital Breast Tomosynthesis Included CLINICAL INDICATION: Routine Screening Mammgram There is a history of breast cancer in the patient's paternal aunt diagnosed in her 40s and in the patient's mother diagnosed after menopause. There has been a previous biopsy right breast for benign disease. COMPARISON: MG DMSB DIG MAMM-SCREEN LIZZIE from 10/13/2016 MG SCBI MM Dig screening mamm BI w/CAD from 11/30/2017 MG DXLT MM Dig mamm DX unilat LT CAD from 05/31/2018 MG SCBI MM Dig screening mamm BI w/CAD from 12/06/2018 TECHNIQUE: Standard CC and MLO images and 3D Tomosynthesis was obtained. R2 CAD reviewed. FINDINGS: There is a diffusely dense and heterogenic parenchymal pattern bilaterally. There are diffusely scattered microcalcifications throughout each breast the appearance most typical of sclerosing adenosis. There is no new or suspicious lesion in either breast and no suspicious microcalcifications. There is stable nodes right axilla. IMPRESSION: Dense and heterogenic parenchymal pattern with no suspicious lesions seen BI-RAD Category: 2 Benign Finding(s) FOLLOW-UP: 1YR 1 Year Follow-up (A letter has been sent to the patient regarding results of the study.) Dictated by: Dr. Elijah Wheeler MD 09/16/2020 19:59 Dr. Elijah Wheeler MD in [place] 09/16/2020 19:59
== END ==
PROVIDERS: PCP Family Medicine; Visit Provider Obstetrics & Gynecology
DX: Z12.31 Encounter for screening mammogram for malignant neoplasm of breast (principal)
CPT/HCPCS: 77063; 77067

== ENCOUNTER → 2020-11-02 14:25 | Outpatient (CLI) | payer BC, SELFPAY ==
[2020-11-02 16:17] LABS: Basophils # 0.1 K/mm3 (0-0.2); Basophils % 0.6 % (0.1-2.0); Eosinophils # 0.2 K/mm3 (0.0-0.4); Eosinophils % 1.8 % (0.1-12.0); Hemoglobin 14.6 g/dL (12.2-16.2); Lymphocytes # 2.2 K/mm3 (0.7-4.5); Lymphocytes % 25.9 % (10-50); Mean Corpuscular HGB Conc 34.6 g/dL (31.8-35.4); Mean Corpuscular Hemoglobin 30.9 pg (27.0-31.2); Mean Corpuscular Volume 89.1 fl (81-99); Mean Platelet Volume 8.9 fl (7.4-10.4); Monocytes # 0.5 K/mm3 (0.1-1.0); Monocytes % 5.6 % (1.7-9.3); Neutrophils # 5.6 K/mm3 (1.8-7.8); Neutrophils % 66.3 % (37.0-80.0); Platelet Count 385 K/mm3 (142-424); Red Blood Count 4.72 M/mm3 (4.20-5.40); Red Cell Distribution Width 13.8 % (11.5-17.5); White Blood Count 8.5 K/mm3 (4.8-10.8)
[2020-11-02 16:21] LABS: Chloride 102 mmol/L (98-107); Potassium 4.3 mmoL/L (3.5-5.1); Sodium 137 mmol/L (136-145)
[2020-11-02 16:23] LABS: Alanine Aminotransferase 65 U/L (12-78); Alkaline Phosphatase 89 U/L (38-126); Aspartate Amino Transferase 66 U/L (14-36); Bilirubin,Total 0.7 mg/dl (0.2-1.3); Blood Urea Nitrogen 11 mg/dl (7-17); Estimated Glomerular Filt Rate 131 ml/min (>60); GFR (African American) 158 ML/MIN (>60)
[2020-11-02 16:24] LABS: Albumin Level 4.8 g/dl (3.5-5.0); Albumin/Globulin Ratio 1.5 (1.1-1.8); Anion Gap 14.3 mEq/L (5-15); Calcium 10.2 mg/dl (8.4-10.2); Carbon Dioxide 25 mmol/L (22.0-30.0); Cholesterol 192 mg/dl (140-200); Globulin 3.1 g/dL (1.3-3.2); Glucose 140 mg/dl (74-100); HDL Cholesterol 32 mg/dl (40-60); Total Protein,Serum 7.9 g/dl (6.3-8.2); Triglycerides 244 mg/dl (30-150); VLDL Cholesterol 49 mg/dL (0-40)
[2020-11-02 16:36] LABS: Direct LDL Cholesterol 128.64 mg/dL (100-129)
[2020-11-02 16:45] LABS: 25-OH Vitamin D, Total 80.7 ng/mL (30-100); T4 (Thyroxine) 9.3 ug/dl (5.53-11.0)
[2020-11-02 16:55] LABS: Thyroid Stimulating Hormone 1.97 uIU/mL (0.465-4.68)
[2020-11-02 17:18] LABS: Microalbumin/Creatinine Ratio 62.2
[2020-11-02 17:19] LABS: Creatinine,Urine Random 236 mg/dL (Not Estab.)
[2020-11-05 11:17] LABS: C-Peptide 7.2 ng/mL (1.1-4.4)
== END ==
PROVIDERS: Visit Provider Nurse Practitioner Family
DX: E11.9 Type 2 diabetes mellitus without complications (principal); I10 Essential (primary) hypertension; Z79.84 Long term (current) use of oral hypoglycemic drugs; Z68.39 Body mass index [BMI] 39.0-39.9, adult
CPT/HCPCS: 80053; 80061; 82043; 82306; 82570; 83036; 84436; 84443; 84681; 85025

== ENCOUNTER → 2020-11-12 09:56 | Outpatient (CLI) | payer BC, SELFPAY ==
--- NOTE | 2020-11-12 09:56 | US_ITS ---
PROCEDURE: US LIVER CLINICAL INDICATION: elevated ast Elevated liver enzymes COMPARISON: No exams were available for comparison FINDINGS: PANCREAS: Unremarkable. No obvious mass or abnormal fluid collection. No ductal dilatation LIVER: Diffuse increased echogenicity of the liver with poor through transmission of sound consistent with hepatic steatosis. No focal liver lesion demonstrated. There is appropriate direction of blood flow within non dilated portal vein. RIGHT KIDNEY: Unremarkable. Normal size and echogenicity. No hydronephrosis GALLBLADDER: No gallstones, gallbladder wall thickening, pericholecystic fluid, or biliary dilatation. IMPRESSION: Fatty liver otherwise negative right upper quadrant Dictated by: Julian Tillman MD 11/12/2020 19:05 Julian Tillman MD in [facility] 11/12/2020 19:05
--- NOTE | 2020-11-12 09:56 | US_ITS ---
PROCEDURE: US THYROID CLINICAL INDICATION: enlarged thyroid COMPARISON: No exams were available for comparison FINDINGS: Right lobe: 1.2cm x 3.9cm x 1.7cm Left lobe: 1.4cm x 3.5cm x 1.4cm Isthmus: Unremarkable at 3 mm Additional findings: There is a 4 x 2 mm hypoechoic nodule in the right lobe of the thyroid gland medially along the lateral aspect of the isthmus benign-appearing. On the left there is a mixed nodule at 8 x 4 mm TR level 2. Additional 2 mm hypoechoic nodules present in the upper pole on the left IMPRESSION: Small bilateral nodules which are probably benign. Consider 12 month follow-up for confirmation Dictated by: Julian Tillman MD 11/13/2020 12:55 Julian Tillman MD in [place] 11/13/2020 12:55
== END ==
LOC: RAD 09:56
PROVIDERS: PCP Nurse Practitioner Family; Visit Provider Nurse Practitioner Family
DX: E04.9 Nontoxic goiter, unspecified (principal); R74.01 Elevation of levels of liver transaminase levels
CPT/HCPCS: 76536; 76705

== ENCOUNTER → 2020-11-26 08:36 | Outpatient (POV) | payer BC, SELFPAY | PROVIDERS: Visit Provider Nurse Practitioner Family | DX: Z00.00 Encounter for general adult medical examination without abnormal findings (principal) ==

== ENCOUNTER → 2020-12-17 14:56 | Outpatient (CLI) | payer BC, SELFPAY ==
[2020-12-19 14:58] LABS: Thyroid Peroxidase Antibodies <9 IU/mL (0-34)
[2020-12-21 05:26] LABS: Calcitonin <2.0 pg/mL (0.0-5.0)
== END ==
PROVIDERS: Visit Provider Otolaryngology
DX: E04.9 Nontoxic goiter, unspecified (principal)
CPT/HCPCS: 36415; 82308; 86376

== ENCOUNTER → 2021-02-16 12:25 | Outpatient (CLI) | payer BC, SELFPAY ==
[2021-02-16 12:51] LABS: Basophils # 0.1 K/mm3 (0-0.2); Basophils % 1.2 % (0.1-2.0); Eosinophils # 0.1 K/mm3 (0.0-0.4); Eosinophils % 1.8 % (0.1-12.0); Hematocrit 40.7 % (37.0-47.0); Hemoglobin 13.6 g/dL (12.2-16.2); Lymphocytes # 2.2 K/mm3 (0.7-4.5); Lymphocytes % 36.4 % (10-50); Mean Corpuscular HGB Conc 33.6 g/dL (31.8-35.4); Mean Corpuscular Hemoglobin 29.4 pg (27.0-31.2); Mean Corpuscular Volume 87.5 fl (81-99); Mean Platelet Volume 7.9 fl (7.4-10.4); Monocytes # 0.3 K/mm3 (0.1-1.0); Monocytes % 4.6 % (1.7-9.3); Neutrophils # 3.3 K/mm3 (1.8-7.8); Neutrophils % 55.9 % (37.0-80.0); Platelet Count 441 K/mm3 (142-424); Red Blood Count 4.65 M/mm3 (4.20-5.40); White Blood Count 5.9 K/mm3 (4.8-10.8)
[2021-02-16 13:11] LABS: Chloride 105 mmol/L (98-107); Potassium 4.3 mmoL/L (3.5-5.1); Sodium 141 mmol/L (136-145)
[2021-02-16 13:13] LABS: Blood Urea Nitrogen 18 mg/dl (7-17); Estimated Glomerular Filt Rate 106 ml/min (>60); GFR (African American) 128 ML/MIN (>60); HCG Qualitative, Serum Negative (Negative)
[2021-02-16 13:14] LABS: Alanine Aminotransferase 66 U/L (12-78); Albumin Level 4.8 g/dl (3.5-5.0); Albumin/Globulin Ratio 1.8 (1.1-1.8); Alkaline Phosphatase 73 U/L (38-126); Anion Gap 13.3 mEq/L (5-15); Aspartate Amino Transferase 66 U/L (14-36); Bilirubin,Total 0.8 mg/dl (0.2-1.3); Carbon Dioxide 27 mmol/L (22.0-30.0); Globulin 2.6 g/dL (1.3-3.2); Total Protein,Serum 7.4 g/dl (6.3-8.2)
[2021-02-16 13:15] LABS: Calcium 9.7 mg/dl (8.4-10.2); Glucose 124 mg/dl (74-100)
[2021-02-16 13:28] LABS: Coronavirus 19 IgG Antibody Positive (Negative); Coronavirus 19 IgM Antibody Negative (Negative)
== END ==
PROVIDERS: Visit Provider Obstetrics & Gynecology
DX: Z01.818 Encounter for other preprocedural examination (principal); Z20.822 Contact with and (suspected) exposure to COVID-19; N92.0 Excessive and frequent menstruation with regular cycle; N90.89 Other specified noninflammatory disorders of vulva and perineum
CPT/HCPCS: 36415; 80053; 84703; 85025; 86328

== ENCOUNTER 2021-02-18 07:03 | Day surgery (SDC) | payer BC, SELFPAY ==
[2021-02-15 11:38] VITALS: BMI 35.3
[2021-02-18] VITALS (12 sets, daily range): BP systolic 141–148; BP diastolic 62–92; PULSE 72–79; RESP 12–20; TEMP 36.4–42.7; O2SAT 93–97
[2021-02-18 07:37] LABS: POC Glucose,Bedside 127 (70-110)
--- NOTE | 2021-02-18 09:49 | HMH.ANESCL ---
[facility] Anesthesia Checklist - Structural Data Admitted From: Home Planned Operative Procedure/s: d/c hyst, myosure,novasure Consent for Planned Operative Procedure(s) Verified: Yes - Additional verifications Anesthesia Reactions: No Hx Blood Transfusions: No Blood Transfusion Reaction: No - Airway Assessment C-Spine Mobility Assessed: Yes TMJ Mobility Assessed: Yes Dentition: Good Dentition - Neurological Assessment Level of Consciousness: Awake, Alert, Appropriate - Anesthesia Plan Anesthesia Risk discussed: Yes Anesthesia Plan: Verified ASA Class: II Anesthesia Type: General [facility] History I have reviewed the patient's past medical history: Yes Medical History: Reports:: Diabetes Mellitus Type 2, Hyperlipidemia, Hypertension Denies:: Cancer, Diabetes Mellitus Type 1, Internal Pacemaker, MRSA, Seizures *Have you ever received a pneumonia vaccine?: No *Have you received a flu vaccine this season?: No Other Medical History: Reports: Arthritis. Denies: Blood Transfusion Reaction Anesthesia experience/problems:: none Laterality Cases: Right: Lumpectomy Other Surgeries: Yes: No Previous Surgery, , Tubal Ligation. No: Pacemaker Amputation: No Fractures: No - *Social History Last grade of school completed: Advanced degree Smoking Status: Never smoker Alcohol Intake: never Alcohol Intake Frequency:: other Substance Use Type: denies use *Occupational Status:: other Housing: house Household Members: spouse, children *Travel in the last 8 weeks: None Family Hx:: No significant family history
--- NOTE | 2021-02-18 09:50 | P.PN_ITS ---
[facility] Anesthesia Record Part I Intake, IV Amount: 800 Estimated blood loss (mL): 0 Urine output (mL): 0 Blood Pressure: 148/77 SaO2: 94 Pulse Rate: 73 Respiratory Rate: 12 Temperature: 98.6 F Patient is:: Awake, Stable Stable to PACU at:: 09:45
[2021-02-18 10:07] LABS: POC Glucose,Bedside 108 (70-110)
--- NOTE | 2021-02-18 10:15 | HMH.OPNOTE ---
Date of procedure: 02/18/21 Pre-op Diagnosis:: 1. Heavy menstrual bleeding 2. Dysfunctional uterine bleeding 3. Labial skin tag Post-op Diagnosis:: same Procedure performed:: D&C Hysteroscopy with Myosure excision of endometrial polyp Novasure endometrial ablation Excision of labial skin tag Surgeon:: Susy Patiño MD [employer] SUPERVISOR:: John Christensen Anesthesia: GETA Estimated blood loss (mL): 10 Operative findings:: endometrial polyp anterior uterine cavity 5x5mm skin tag left labia majora Operative note:: The patient was taken to the operating room and general anesthesia was administered. She was prepped/draped in lithotomy position. The anterior lip of the cervix was grasped with a single tooth tenaculum and the cervix was dilated with Tejeda dilators of serially increasing size until the external os was able to accomodate the Myosure hysteroscope. The hysteroscope was advanced through the cervix and into the uterine cavity, which was distended with LR. Once the uterus was sufficiently distended, the cavity was evaluated and revealed a lesion on the anterior cavity wall consistent with an endometrial polyp or submucosal fibroid. The Myosure was inserted into the hysteroscope and the lesion was excised successfully and without complication or significant fluid deficit. After the conclusion of this procedure, the Myosure and hysteroscope were removed from the uterus. The uterine cavity sounded to a length of 5cm. The Novasure was inserted through the cervix and expanded to fit the width of the uterus, with a width of 2.6cm. After a successful cavity assessment, the device was deployed and the endometrial ablation was completed in 84 seconds. Once the device had turned off, the Novasure was removed from the uterus and the hysteroscope was reinserted into the uterine cavity. The cavity appeared diffusely cauterized. The hysteroscope was removed from the uterus and all instruments removed from the vagina. The tenaculum site was hemostatic. The skin tag on left labia majora was excised using a 15 blade. The defect was closed with 4-0 monocryl. All sponge/lap/needle/instrument counts correct x2. Total EBL: 10 cc. The patient was taken out of lithotomy position, extubated and taken to the PACU in stable condition. Condition: stable Disposition: PACU Specimens:: 1. endometrial curettings 2. labial skin tag Complications:: none
--- NOTE | 2021-02-18 15:00 | HMH.ANESII ---
[facility] Anesthesia Record Part II Discharge Time: 10:14 Destination: Surgical Day Care (OP Surgery) PACU nurse assessment reviewed?: Yes Patient Condition:: Good Anesthesia Complications:: None Swallowing reflex intact?: Yes Cyanosis?: No Blood Pressure: 143/84 Pulse Rate: 72 Temperature: 98.1 F Mental Status: Alert & Oriented Pain level:: 2 Nausea and/or vomitting:: None Intake, IV Amount: 0
== END 2021-02-18 11:05 | disposition home or self-care (01) ==
LOC: OR 07:04
PROVIDERS: PCP Nurse Practitioner Family; Visit Provider Obstetrics & Gynecology
PROC: (CPT 58563; principal; 2021-02-18 08:30)
PROC: 0U5B7ZZ Destruction of Endometrium, Via Natural or Artificial Opening (ICD-10-PCS; CPT 58353; 2021-02-18 08:30)
DX: N92.0 Excessive and frequent menstruation with regular cycle (principal); N90.89 Other specified noninflammatory disorders of vulva and perineum; N84.0 Polyp of corpus uteri; E11.9 Type 2 diabetes mellitus without complications; E78.5 Hyperlipidemia, unspecified; I10 Essential (primary) hypertension; M19.90 Unspecified osteoarthritis, unspecified site; Z88.0 Allergy status to penicillin; Z79.82 Long term (current) use of aspirin; Z79.899 Other long term (current) drug therapy; Z79.84 Long term (current) use of oral hypoglycemic drugs
CPT/HCPCS: 58563; 11200; 82962; 96374; J2405

== ENCOUNTER → 2021-03-04 14:34 | Outpatient (CLI) | payer BC, SELFPAY ==
[2021-03-04 15:51] LABS: Anion Gap 11.8 mEq/L (5-15); Blood Urea Nitrogen 14 mg/dl (7-17); Calcium 9.9 mg/dl (8.4-10.2); Carbon Dioxide 26 mmol/L (22.0-30.0); Chloride 106 mmol/L (98-107); Estimated Glomerular Filt Rate 88 ml/min (>60); GFR (African American) 107 ML/MIN (>60); Glucose 138 mg/dl (74-100); Potassium 3.8 mmoL/L (3.5-5.1); Sodium 140 mmol/L (136-145)
[2021-03-04 15:57] LABS: C-Reactive Protein 1.8 mg/L (0-4)
[2021-03-04 16:29] LABS: Basophils % 0.6 % (0.1-2.0); Eosinophils # 0.1 K/mm3 (0.0-0.4); Eosinophils % 1.9 % (0.1-12.0); Hemoglobin 13.5 g/dL (12.2-16.2); Lymphocytes # 2.2 K/mm3 (0.7-4.5); Lymphocytes % 30.1 % (10-50); Mean Corpuscular HGB Conc 33.7 g/dL (31.8-35.4); Mean Corpuscular Hemoglobin 29.1 pg (27.0-31.2); Mean Corpuscular Volume 86.1 fl (81-99); Mean Platelet Volume 8.1 fl (7.4-10.4); Monocytes # 0.3 K/mm3 (0.1-1.0); Monocytes % 4.5 % (1.7-9.3); Neutrophils # 4.5 K/mm3 (1.8-7.8); Platelet Count 378 K/mm3 (142-424); Red Blood Count 4.65 M/mm3 (4.20-5.40); Red Cell Distribution Width 13.1 % (11.5-17.5); White Blood Count 7.2 K/mm3 (4.8-10.8)
[2021-03-04 16:33] LABS: Erythrocyte Sedimentation Rate 16 mm/hr (0-30)
== END ==
PROVIDERS: Visit Provider Orthopaedic Surgery
DX: Z01.818 Encounter for other preprocedural examination (principal); R22.31 Localized swelling, mass and lump, right upper limb; I10 Essential (primary) hypertension
CPT/HCPCS: 36415; 80048; 85025; 85651; 86140

== ENCOUNTER → 2021-03-11 15:27 | Outpatient (CLI) | payer BC, SELFPAY ==
[2021-03-11 16:00] LABS: Basophils # 0.1 K/mm3 (0-0.2); Basophils % 0.6 % (0.1-2.0); Eosinophils # 0.2 K/mm3 (0.0-0.4); Hematocrit 38.9 % (37.0-47.0); Hemoglobin 12.8 g/dL (12.2-16.2); Lymphocytes # 2.4 K/mm3 (0.7-4.5); Lymphocytes % 27.3 % (10-50); Mean Corpuscular Hemoglobin 28.7 pg (27.0-31.2); Mean Corpuscular Volume 86.9 fl (81-99); Monocytes # 0.4 K/mm3 (0.1-1.0); Monocytes % 4.5 % (1.7-9.3); Neutrophils # 5.7 K/mm3 (1.8-7.8); Neutrophils % 65.6 % (37.0-80.0); Platelet Count 436 K/mm3 (142-424); Red Blood Count 4.47 M/mm3 (4.20-5.40); Red Cell Distribution Width 12.9 % (11.5-17.5); White Blood Count 8.7 K/mm3 (4.8-10.8)
== END ==
PROVIDERS: Visit Provider Obstetrics & Gynecology
DX: R42 Dizziness and giddiness (principal)
CPT/HCPCS: 36415; 85025

== ENCOUNTER → 2021-06-03 14:30 | Outpatient (CLI) | payer BC, SELFPAY ==
[2021-06-03 15:48] LABS: Basophils # 0.1 K/mm3 (0-0.2); Eosinophils # 0.2 K/mm3 (0.0-0.4); Hematocrit 42.2 % (37.0-47.0); Hemoglobin 14.4 g/dL (12.2-16.2); Lymphocytes # 2.2 K/mm3 (0.7-4.5); Lymphocytes % 28.5 % (10-50); Mean Corpuscular HGB Conc 34.2 g/dL (31.8-35.4); Mean Corpuscular Hemoglobin 29.2 pg (27.0-31.2); Mean Corpuscular Volume 85.5 fl (81-99); Mean Platelet Volume 9.2 fl (7.4-10.4); Monocytes # 0.4 K/mm3 (0.1-1.0); Monocytes % 4.7 % (1.7-9.3); Neutrophils # 4.8 K/mm3 (1.8-7.8); Neutrophils % 63.7 % (37.0-80.0); Platelet Count 429 K/mm3 (142-424); Red Blood Count 4.94 M/mm3 (4.20-5.40); White Blood Count 7.6 K/mm3 (4.8-10.8)
[2021-06-03 15:59] LABS: Creatinine,Urine Random 17 mg/dL (Not Estab.)
[2021-06-03 16:16] LABS: Microalbumin < 6.000 mg/L (0-16.7)
[2021-06-03 16:40] LABS: Hemoglobin A1C 6.1 % (4.0-6.0)
[2021-06-03 17:28] LABS: Alanine Aminotransferase 52 U/L (12-78); Albumin Level 5.1 g/dl (3.5-5.0); Albumin/Globulin Ratio 1.8 (1.1-1.8); Alkaline Phosphatase 73 U/L (38-126); Anion Gap 17.4 mEq/L (5-15); Aspartate Amino Transferase 57 U/L (14-36); Bilirubin,Total 0.7 mg/dl (0.2-1.3); Blood Urea Nitrogen 17 mg/dl (7-17); Calcium 9.5 mg/dl (8.4-10.2); Carbon Dioxide 27 mmol/L (22.0-30.0); Chloride 102 mmol/L (98-107); Chol/HDL Ratio 5.3 (1-3.5); Cholesterol 216 mg/dl (140-200); Estimated Glomerular Filt Rate 88 ml/min (>60); GFR (African American) 107 ML/MIN (>60); Globulin 2.9 g/dL (1.3-3.2); Glucose 103 mg/dl (74-100); HDL Cholesterol 41 mg/dl (40-60); Potassium 4.4 mmoL/L (3.5-5.1); Sodium 142 mmol/L (136-145); Triglycerides 163 mg/dl (30-150); VLDL Cholesterol 33 mg/dL (0-40)
[2021-06-03 17:45] LABS: T4 (Thyroxine) 9.1 ug/dl (5.53-11.0)
[2021-06-03 17:46] LABS: 25-OH Vitamin D, Total 81.6 ng/mL (30-100)
[2021-06-03 17:59] LABS: Thyroid Stimulating Hormone 3.53 uIU/mL (0.465-4.68)
== END ==
PROVIDERS: Visit Provider Nurse Practitioner Family
DX: E11.9 Type 2 diabetes mellitus without complications (principal); E66.3 Overweight; Z79.84 Long term (current) use of oral hypoglycemic drugs; Z68.34 Body mass index [BMI] 34.0-34.9, adult
CPT/HCPCS: 80053; 80061; 82043; 82306; 82570; 83036; 84436; 84443; 85025

== ENCOUNTER → 2021-09-09 10:05 | Outpatient (CLI) | payer BC, SELFPAY ==
--- NOTE | 2021-09-09 10:05 | US_ITS ---
PROCEDURE: US THYROID CLINICAL INDICATION: GOITER COMPARISON: US US THYROID from 11/12/2020 FINDINGS: Right lobe: 4.3 x 1.2 x 1.8 cm. No change in the 3 mm hypoechoic nodule in the mid aspect of the right lobe medially Left lobe: 4.1 x 1.2 x 1.5 cm. 4 x 3 mm hypoechoic nodule upper pole. No change. 8 x 5 mm spongiform nodule mid aspect of the left lobe unchanged. Isthmus: Unremarkable Additional findings: IMPRESSION: Stable small bilateral benign-appearing thyroid nodules Dictated by: Julian Tillman MD 09/16/2021 07:43 Julian Tilmlan MD in [place] 09/16/2021 07:43
== END ==
PROVIDERS: PCP Nurse Practitioner Family; Visit Provider Otolaryngology
DX: E04.9 Nontoxic goiter, unspecified (principal)
CPT/HCPCS: 76536

== ENCOUNTER → 2021-09-16 10:31 | Outpatient (CLI) | payer BC, SELFPAY ==
--- NOTE | 2021-09-16 10:32 | MM_ITS ---
PROCEDURE INFORMATION: Exam: MG Bilateral Screening 3D Mammography Exam date and time: 09/16/2021 10:32 AM Age: 51 years old Clinical indication: Encounter for screening mammogram for malignant neoplasm of breast TECHNIQUE: Imaging protocol: Bilateral screening tomosynthesis and 2D mammography including computer-aided detection (CAD) when performed. COMPARISON: 1. MG MM DIG SCREENING MAMM BI W/CAD 09/10/2020 1:07 PM 2. MG SCBI MM Dig screening mamm BI w/CAD 12/06/2018 10:08 AM FINDINGS: MAMMOGRAPHY: Breast composition: The breast tissue is extremely dense, limiting the sensitivity of mammography. Mass: None. Architectural distortion: None. Calcifications: No suspicious calcifications. Asymmetric density: None. Skin thickening: None. Axillary adenopathy: None. IMPRESSION: No mammographic evidence of malignancy. Annual screening is recommended unless otherwise clinically indicated. ASSESSMENT: BI-RADS Category 1: Negative
== END ==
PROVIDERS: PCP Nurse Practitioner Family; Visit Provider Obstetrics & Gynecology
DX: Z12.31 Encounter for screening mammogram for malignant neoplasm of breast (principal)
CPT/HCPCS: 77063; 77067

== ENCOUNTER → 2021-12-02 16:00 | Outpatient (CLI) | payer BC, SELFPAY ==
[2021-12-02 14:26] LABS: Basophils # 0.1 K/mm3 (0-0.2); Basophils % 1.4 % (0.1-2.0); Eosinophils # 0.3 K/mm3 (0.0-0.4); Eosinophils % 4.5 % (0.1-12.0); Hematocrit 43.2 % (37.0-47.0); Hemoglobin 13.7 g/dL (12.2-16.2); Lymphocytes # 2.2 K/mm3 (0.7-4.5); Lymphocytes % 34.7 % (10-50); Mean Corpuscular HGB Conc 31.7 g/dL (31.8-35.4); Mean Corpuscular Hemoglobin 29.2 pg (27.0-31.2); Mean Corpuscular Volume 92.2 fl (81-99); Mean Platelet Volume 8.8 fl (7.4-10.4); Monocytes # 0.3 K/mm3 (0.1-1.0); Monocytes % 4.8 % (1.7-9.3); Neutrophils # 3.4 K/mm3 (1.8-7.8); Neutrophils % 54.5 % (37.0-80.0); Platelet Count 391 K/mm3 (142-424); Red Blood Count 4.68 M/mm3 (4.20-5.40); Red Cell Distribution Width 13.4 % (11.5-17.5); White Blood Count 6.2 K/mm3 (4.8-10.8)
[2021-12-02 15:12] LABS: Anion Gap 15.8 mEq/L (5-15); Blood Urea Nitrogen 16 mg/dl (7-17); Calcium 9.5 mg/dl (8.4-10.2); Carbon Dioxide 25 mmol/L (22.0-30.0); Chloride 105 mmol/L (98-107); Chol/HDL Ratio 5.2 (1-3.5); Cholesterol 219 mg/dl (140-200); Estimated Glomerular Filt Rate 130 ml/min (>60); GFR (African American) 157 ML/MIN (>60); Glucose 102 mg/dl (74-100); HDL Cholesterol 42 mg/dl (40-60); Potassium 3.8 mmoL/L (3.5-5.1); Sodium 142 mmol/L (136-145); Triglycerides 130 mg/dl (30-150); VLDL Cholesterol 26 mg/dL (0-40)
[2021-12-02 15:23] LABS: Direct LDL Cholesterol 163.77 mg/dL (100-129)
[2021-12-02 15:29] LABS: T4 (Thyroxine) 8.9 ug/dl (5.53-11.0)
[2021-12-02 15:42] LABS: Hemoglobin A1C 6.2 % (4.0-6.0)
[2021-12-02 15:43] LABS: Thyroid Stimulating Hormone 1.95 uIU/mL (0.465-4.68)
== END ==
PROVIDERS: Visit Provider Nurse Practitioner Family
DX: E11.9 Type 2 diabetes mellitus without complications (principal); E04.1 Nontoxic single thyroid nodule; Z79.84 Long term (current) use of oral hypoglycemic drugs
CPT/HCPCS: 80048; 80061; 83036; 84436; 84443; 85025

== ENCOUNTER → 2022-06-09 21:14 | Outpatient (CLI) | payer BC, SELFPAY ==
[2022-06-09 22:09] LABS: Basophils # 0.1 K/mm3 (0-0.2); Eosinophils # 0.2 K/mm3 (0.0-0.4); Eosinophils % 2.3 % (0.1-12.0); Hematocrit 44.7 % (37.0-47.0); Hemoglobin 13.3 g/dL (12.2-16.2); Lymphocytes # 1.7 K/mm3 (0.7-4.5); Lymphocytes % 24.3 % (10-50); Mean Corpuscular HGB Conc 29.9 g/dL (31.8-35.4); Mean Corpuscular Hemoglobin 29.2 pg (27.0-31.2); Mean Corpuscular Volume 97.8 fl (81-99); Mean Platelet Volume 9.8 fl (7.4-10.4); Monocytes # 0.5 K/mm3 (0.1-1.0); Neutrophils # 4.7 K/mm3 (1.8-7.8); Neutrophils % 65.3 % (37.0-80.0); Platelet Count 397 K/mm3 (142-424); Red Blood Count 4.57 M/mm3 (4.20-5.40); White Blood Count 7.2 K/mm3 (4.8-10.8)
[2022-06-09 22:21] LABS: Alanine Aminotransferase 51 U/L (12-78); Albumin Level 4.6 g/dl (3.5-5.0); Albumin/Globulin Ratio 1.6 (1.1-1.8); Alkaline Phosphatase 90 U/L (38-126); Anion Gap 13.1 mEq/L (5-15); Aspartate Amino Transferase 61 U/L (14-36); Bilirubin,Total 0.4 mg/dl (0.2-1.3); Blood Urea Nitrogen 15 mg/dl (7-17); Calcium 10.2 mg/dl (8.4-10.2); Carbon Dioxide 25 mmol/L (22.0-30.0); Chloride 106 mmol/L (98-107); Chol/HDL Ratio 5.7 (1-3.5); Cholesterol 216 mg/dl (140-200); Estimated Glomerular Filt Rate 105 ml/min (>60); GFR (African American) 127 ML/MIN (>60); Globulin 2.9 g/dL (1.3-3.2); Glucose 132 mg/dl (74-100); HDL Cholesterol 38 mg/dl (40-60); Potassium 4.1 mmoL/L (3.5-5.1); Sodium 140 mmol/L (136-145); Total Protein,Serum 7.5 g/dl (6.3-8.2); Triglycerides 175 mg/dl (30-150); VLDL Cholesterol 35 mg/dL (0-40)
[2022-06-09 22:27] LABS: Hemoglobin A1C 6.3 % (4.0-6.0)
[2022-06-09 22:38] LABS: 25-OH Vitamin D, Total 88.8 ng/mL (30-100)
[2022-06-09 22:53] LABS: Thyroid Stimulating Hormone 1.98 uIU/mL (0.465-4.68)
[2022-06-09 23:12] LABS: Vitamin B12 > 1000 pg/mL (239-931)
[2022-06-11 13:51] LABS: Direct LDL Cholesterol 130 mg/dL (100-129)
== END ==
PROVIDERS: PCP Physician Assistant; Visit Provider Physician Assistant
DX: E11.9 Type 2 diabetes mellitus without complications (principal); I10 Essential (primary) hypertension; E78.5 Hyperlipidemia, unspecified; E66.9 Obesity, unspecified; Z68.35 Body mass index [BMI] 35.0-35.9, adult; Z79.84 Long term (current) use of oral hypoglycemic drugs
CPT/HCPCS: 80053; 80061; 82306; 82607; 83036; 84443; 84681; 85025

== ENCOUNTER 2022-11-29 10:17 | Emergency (ER) | payer BC, SELFPAY ==
[2022-11-29] VITALS (10 sets, daily range): BP systolic 133–180; BP diastolic 70–96; PULSE 84–100; RESP 16–20; TEMP 36.9; O2SAT 96–98; BMI 37.2
--- NOTE | 2022-11-29 10:27 | HMH.EDGENADL ---
Discharge Plan Disposition Patient Disposition: Home, Self-Care Condition: Good Prescriptions Prescriptions: No Action cholecalciferol (vitamin D3) 2,000 unit capsule 2,000 unit PO DAILY omeprazole 20 mg capsule,delayed release(DR/EC) 20 mg PO DAILY Centrum Silver Women 8 mg iron-400 mcg-300 mcg tablet 1 tab PO DAILY cyanocobalamin (vitamin B-12) 1,000 mcg capsule 1,000 mcg PO DAILY aspirin 81 mg tablet,delayed release (DR/EC) 81 mg PO DAILY furosemide 40 mg tablet 40 mg PO DAILY lysine 500 mg tablet 500 mg PO DAILY metformin 500 mg tablet See Rx Instructions .ROUTE .COMPLEX Qty: 180 3RF Dose Instruction: TAKE 1 TABLET BY MOUTH TWICE DAILY FOR DIABETES Rx Instructions: TAKE 1 TABLET BY MOUTH TWICE DAILY FOR DIABETES potassium chloride 10 mEq tablet extended release See Rx Instructions .ROUTE .COMPLEX Qty: 90 0RF Dose Instruction: TAKE 1 TABLET BY MOUTH ONCE DAILY Rx Instructions: TAKE 1 TABLET BY MOUTH ONCE DAILY lisinopril 10 mg tablet See Rx Instructions .ROUTE .COMPLEX Qty: 90 0RF Dose Instruction: TAKE 1 TABLET BY MOUTH ONCE DAILY FOR HIGH BLOOD PRESSURE Rx Instructions: TAKE 1 TABLET BY MOUTH ONCE DAILY FOR HIGH BLOOD PRESSURE fenofibrate 160 mg tablet See Rx Instructions .ROUTE .COMPLEX Qty: 90 0RF Dose Instruction: TAKE 1 TABLET BY MOUTH ONCE DAILY FOR CHOLESTEROL Rx Instructions: TAKE 1 TABLET BY MOUTH ONCE DAILY FOR CHOLESTEROL furosemide 40 mg tablet See Rx Instructions .ROUTE .COMPLEX Qty: 90 0RF Dose Instruction: TAKE 1 TABLET BY MOUTH ONCE DAILY FOR FLUID/BP Rx Instructions: TAKE 1 TABLET BY MOUTH ONCE DAILY FOR FLUID/BP Referrals Follow up/Referrals: Sherrie Leal PA [Primary Care Provider] - See instructions Activity Restrictions/Add. Instructions Additional Instructions/Restrictions: Your work-up today was largely unremarkable from an emergency standpoint. However your CT scan demonstrated an abnormality within the uterus which recommended ultrasound follow-up. The ultrasound emanated fluid in the endometrium along with a poorly defined 18 x 10 mm ovoid hypoechoic mass in the endometrial cavity the differential includes endometrial polyp a submucosal fibroid or hematoma is recommended that you follow-up with your BUSINESS ANALYSIS SPECIALIST doctor to discuss further and if a hysteroscopy might be indicated. Please return if you continue to bleed through more than 1 pad an hour. Please note to that your hemoglobin and vital signs are stable and your ED visit you are not near needing a transfusion. You may take NSAIDs this includes naproxen 220 mg twice a day for ibuprofen 800 mg 3 times a day with food. Please follow-up with Dr. Patiño within 1 week. Clinical Impressions Clinical Impression: Abnormal uterine bleeding, Bilateral lower abdominal pain Discharge ED Provider: Paul Patiño General Adult HPI General Chief complaint: Vaginal Bleeding Stated complaint: abd pain to back and top of legs Time Seen by Provider: 11/29/22 10:27 History of Present Illness HPI narrative: Patient is a 52-year-old female presenting with lower abdominal discomfort and vaginal bleeding. States that she has been going through menopause for the last 14 months. However has had almost 12 months without any type of bleeding which has recently broken through. States that she called her BUSINESS ANALYSIS SPECIALIST doctor told her to go to the ER yesterday due to her severe pain. States that her pain is bilateral lower quadrants and suprapubic in nature radiating through to her back. Pain was severe this morning 10 out of 10 she states. Currently at a 5 out of 10. Denies any urinary frequency burning or urgency. Denies any changes in bowel habits. Has not had any abdominal imaging recently however has had a uterine fibroid in the past. Which was surgically removed. States she also has had an ovarian cyst in the past.
--- NOTE | 2022-11-29 10:29 | PC.NURSE ---
HARVINDER MONTOYA at
--- NOTE | 2022-11-29 10:34 | CT_ITS ---
PROCEDURE INFORMATION: Exam: CT Abdomen And Pelvis With Contrast Exam date and time: 11/29/2022 11:18 AM Age: 52 years old Clinical indication: Abdominal pain; Localized; Lower; Additional info: Lower abdominal discomfort, post-menopausal bld TECHNIQUE: Imaging protocol: Computed tomography of the abdomen and pelvis with contrast. Radiation optimization: All CT scans at this facility use at least one of these dose optimization techniques: automated exposure control; mA and/or kV adjustment per patient size (includes targeted exams where dose is matched to clinical indication); or iterative reconstruction. Contrast material: ISOVUE; Contrast volume: 75 ml; Contrast route: IV; Other protocol: This patient has received 0 known CTs and 0 known cardiac nuclear medicine studies in the 12 months prior to the current study. COMPARISON: US LIVER 11/12/2020 10:17 AM FINDINGS: Lungs: Interstitial prominence and mild parenchymal stranding. Liver: Fatty infiltration of the liver. Gallbladder and bile ducts: Unremarkable gallbladder. Pancreas: No pancreatic mass or ductal dilatation. Spleen: Spleen upper limits of normal size. Adrenal glands: Unremarkable adrenals. Kidneys and ureters: Normal renal morphology. Mild right ureteral dilatation. Stomach and bowel: Wall thickening in the nondistended stomach. Prominent stool. Diverticula, without pericolonic inflammation. Appendix: Nonvisualization of the appendix. Intraperitoneal space: Small quantity of high attenuation fluid in the left posterior pelvis. Vasculature: Normal caliber of the abdominal aorta. Lymph nodes: Multiple lymph nodes, the majority of which are subcentimeter in size. Urinary bladder: Unremarkable bladder. Reproductive: Bicornuate uterus with poorly defined hypodensity in the anterior uterine corpus and endometrial fluid. Ultrasound correlation is recommended for improved characterization. 2.7 cm right ovarian cyst. Bones/joints: Mild scoliosis and degenerative change. Soft tissues: Unremarkable. IMPRESSION: 1. Bicornuate uterus with poorly defined hypodensity in the anterior uterine corpus and endometrial fluid. Ultrasound correlation is recommended for improved characterization. 2. Small quantity of high attenuation fluid in the left posterior pelvis. 3. Wall thickening in the nondistended stomach. 4. Additional findings as described above.
[2022-11-29 10:50] LABS: Basophils # 0.1 K/mm3 (0-0.2); Basophils % 0.3 % (0.1-2.0); Eosinophils # 0.2 K/mm3 (0.0-0.4); Hematocrit 41.1 % (37.0-47.0); Hemoglobin 13.5 g/dL (12.2-16.2); Lymphocytes # 0.9 K/mm3 (0.7-4.5); Lymphocytes % 4.5 % (10-50); Mean Corpuscular HGB Conc 32.9 g/dL (31.8-35.4); Mean Corpuscular Volume 88.4 fl (81-99); Mean Platelet Volume 8.3 fl (7.4-10.4); Monocytes # 0.5 K/mm3 (0.1-1.0); Monocytes % 2.6 % (1.7-9.3); Neutrophils # 18.7 K/mm3 (1.8-7.8); Neutrophils % 91.6 % (37.0-80.0); Platelet Count 362 K/mm3 (142-424); Red Blood Count 4.66 M/mm3 (4.20-5.40); Red Cell Distribution Width 13.6 % (11.5-17.5); White Blood Count 20.4 K/mm3 (4.8-10.8)
[2022-11-29 10:57] LABS: MANUAL DIFFERENTIAL MANUAL DIFFERENTIAL (MANUAL DIFF)
[2022-11-29 11:02] LABS: Alanine Aminotransferase 51 U/L (12-78); Albumin Level 4.7 g/dl (3.5-5.0); Albumin/Globulin Ratio 1.6 (1.1-1.8); Alkaline Phosphatase 85 U/L (38-126); Anion Gap 12.8 mEq/L (5-15); Aspartate Amino Transferase 62 U/L (14-36); Bilirubin,Total 0.8 mg/dl (0.2-1.3); Blood Urea Nitrogen 14 mg/dl (7-17); Calcium 8.9 mg/dl (8.4-10.2); Carbon Dioxide 23 mmol/L (22.0-30.0); Chloride 108 mmol/L (98-107); Creatinine Clearance Estimated 198 mL/min (50-200); Estimated Glomerular Filt Rate 130 ml/min (>60); GFR (African American) 157 ML/MIN (>60); Glucose 198 mg/dl (74-100); Potassium 3.8 mmoL/L (3.5-5.1); Sodium 140 mmol/L (136-145); Total Protein,Serum 7.7 g/dl (6.3-8.2)
--- NOTE | 2022-11-29 11:10 | PC.NURSE ---
pt given warm blanket, reports pain has improved. Rad is aware of Ct scan
--- NOTE | 2022-11-29 11:11 | PC.NURSE ---
11/28 pain reassessment. Warm blanket provided. Awaiting CT. No further complaints at this time.
[2022-11-29 11:35] LABS: Lymphocytes % 9 % (10-50); Monocytes % 3 % (2-9); Neutrophils % 88 % (42-76); Total Cells Counted 100
[2022-11-29 11:36] LABS: Platelet Estimate Normal; RBC Morphology Normal
--- NOTE | 2022-11-29 11:37 | PC.NURSE ---
Addendum entered by Teagan Boyle RN 11/29/22 11:44: per rad staff no report back yet on pt CT, states they will keep checking for it. Original Note: asked to rad staff to check on status of pt CT reading
--- NOTE | 2022-11-29 12:09 | US_ITS ---
PROCEDURE INFORMATION: Exam: US Pelvis, Transvaginal Exam date and time: 11/29/2022 12:58 PM Age: 52 years old Clinical indication: Abnormal findings; Abnormal imaging test; Prior surgery; Surgery date: 6+ months; Surgery type: Fibroid removed 1 to 2 years ago; Additional info: Follow up abnormality from CT TECHNIQUE: Imaging protocol: Real-time transvaginal pelvic ultrasound with image documentation. Transvaginal imaging was used for better evaluation of the endometrium, adnexa, and/or cervix. COMPARISON: US TRANSVAGINAL 09/03/2020 2:40 PM FINDINGS: Uterus: Uterus measures 9.3 by 2.7 by 6.9 cm. Fluid in the endometrium, which measures 12 mm in diameter along with a poorly defined 18 x 10 mm ovoid hypoechoic mass in the endometrial cavity. The differential diagnosis would include endometrial polyp, submucosal fibroid, or hematoma. Hysteroscopy can be performed for further evaluation if clinically indicated. Cervix: Subcentimeter nabothian cyst. Right ovary/adnexa: Right ovary measures 3.7 x 2.3 by 2.5 cm. Right ovarian blood flow demonstrated. Left ovary/adnexa: Left ovary measures 2.4 x 1.7 x 2.8 cm. Left ovarian blood flow demonstrated. Intraperitoneal space: Trace free fluid. IMPRESSION: Fluid in the endometrium, which measures 12 mm in diameter along with a poorly defined 18 x 10 mm ovoid hypoechoic mass in the endometrial cavity. The differential diagnosis would include endometrial polyp, submucosal fibroid, or hematoma. Hysteroscopy can be performed for further evaluation if clinically indicated.
--- NOTE | 2022-11-29 12:57 | PC.NURSE ---
pt in ultrasound
--- NOTE | 2022-11-29 13:49 | PC.NURSE ---
pt return from ultrasound at this time
--- NOTE | 2022-11-29 14:35 | PC.NURSE ---
contacted rad to check on status of u/s report, rad staff states it is being read but they are requiring a report sheet from the [facility] so they are working on send that to them.
== END 2022-11-29 15:31 | disposition home or self-care (01) ==
PROVIDERS: Emergency Provider Student in an Organized Health Care Education/Training Program; PCP Physician Assistant
DX: R10.32 Left lower quadrant pain (principal); N93.9 Abnormal uterine and vaginal bleeding, unspecified; R10.31 Right lower quadrant pain; E11.9 Type 2 diabetes mellitus without complications; I10 Essential (primary) hypertension; Z98.51 Tubal ligation status
CPT/HCPCS: 74177; 76830; 80053; 85007; 85025; 96361; 96374; 96375; 99285; J2405; Q9967

== ENCOUNTER → 2022-12-01 11:05 | Outpatient (CLI) | payer BC, SELFPAY ==
[2022-12-01 15:05] LABS: Basophils # 0.1 K/mm3 (0-0.2); Basophils % 0.9 % (0.1-2.0); Eosinophils # 0.2 K/mm3 (0.0-0.4); Eosinophils % 2.6 % (0.1-12.0); Hematocrit 38.5 % (37.0-47.0); Hemoglobin 12.6 g/dL (12.2-16.2); Lymphocytes # 1.7 K/mm3 (0.7-4.5); Lymphocytes % 21.9 % (10-50); Mean Corpuscular HGB Conc 32.7 g/dL (31.8-35.4); Mean Corpuscular Volume 88.8 fl (81-99); Mean Platelet Volume 9.3 fl (7.4-10.4); Monocytes # 0.6 K/mm3 (0.1-1.0); Monocytes % 7.7 % (1.7-9.3); Neutrophils # 5.2 K/mm3 (1.8-7.8); Neutrophils % 67.1 % (37.0-80.0); Platelet Count 402 K/mm3 (142-424); Red Blood Count 4.33 M/mm3 (4.20-5.40); Red Cell Distribution Width 13.7 % (11.5-17.5); White Blood Count 7.7 K/mm3 (4.8-10.8)
[2022-12-01 17:19] LABS: Hemoglobin A1C 6.5 % (4.0-6.0)
== END ==
PROVIDERS: PCP Physician Assistant; Visit Provider Physician Assistant
DX: E11.9 Type 2 diabetes mellitus without complications (principal); R10.9 Unspecified abdominal pain; Z79.84 Long term (current) use of oral hypoglycemic drugs
CPT/HCPCS: 83036; 85025; 87086; 87088; 87186

== ENCOUNTER → 2023-05-18 10:14 | Outpatient (CLI) | payer BC, SELFPAY ==
[2023-05-18 10:37] LABS: Basophils # 0.1 K/mm3 (0-0.2); Eosinophils # 0.2 K/mm3 (0.0-0.4); Eosinophils % 3.3 % (0.1-12.0); Hematocrit 42.4 % (37.0-47.0); Hemoglobin 13.8 g/dL (12.2-16.2); Lymphocytes # 2.1 K/mm3 (0.7-4.5); Lymphocytes % 30.1 % (10-50); Mean Corpuscular HGB Conc 32.5 g/dL (31.8-35.4); Mean Corpuscular Hemoglobin 28.6 pg (27.0-31.2); Mean Corpuscular Volume 88.1 fl (81-99); Mean Platelet Volume 8.3 fl (7.4-10.4); Monocytes # 0.4 K/mm3 (0.1-1.0); Monocytes % 6.1 % (1.7-9.3); Neutrophils # 4.1 K/mm3 (1.8-7.8); Neutrophils % 59.4 % (37.0-80.0); Platelet Count 349 K/mm3 (142-424); Red Blood Count 4.82 M/mm3 (4.20-5.40); Red Cell Distribution Width 13.9 % (11.5-17.5); White Blood Count 6.9 K/mm3 (4.8-10.8)
[2023-05-18 10:48] LABS: Creatinine,Urine Random 29 mg/dL (Not Estab.)
[2023-05-18 10:51] LABS: Microalbumin/Creatinine Ratio 24.4
[2023-05-18 11:06] LABS: Alanine Aminotransferase 36 U/L (12-78); Albumin Level 4.7 g/dl (3.5-5.0); Albumin/Globulin Ratio 1.7 (1.1-1.8); Alkaline Phosphatase 95 U/L (38-126); Anion Gap 13.4 mEq/L (5-15); Aspartate Amino Transferase 37 U/L (14-36); Bilirubin,Total 0.3 mg/dl (0.2-1.3); Blood Urea Nitrogen 14 mg/dl (7-17); Calcium 9.5 mg/dl (8.4-10.2); Carbon Dioxide 25 mmol/L (22.0-30.0); Chloride 109 mmol/L (98-107); Chol/HDL Ratio 5.9 (1-3.5); Cholesterol 196 mg/dl (140-200); Estimated Glomerular Filt Rate 129 ml/min (>60); GFR (African American) 156 ML/MIN (>60); Globulin 2.7 g/dL (1.3-3.2); Glucose 110 mg/dl (74-100); HDL Cholesterol 33 mg/dl (40-60); Potassium 4.4 mmoL/L (3.5-5.1); Sodium 143 mmol/L (136-145); Total Protein,Serum 7.4 g/dl (6.3-8.2); Triglycerides 156 mg/dl (30-150); VLDL Cholesterol 31 mg/dL (0-40)
[2023-05-18 11:08] LABS: Hemoglobin A1C 6.5 % (4.0-6.0)
[2023-05-18 11:17] LABS: Direct LDL Cholesterol 132.05 mg/dL (100-129)
[2023-05-18 11:24] LABS: 25-OH Vitamin D, Total 79.2 ng/mL (30-100)
[2023-05-18 11:37] LABS: Thyroid Stimulating Hormone 2.08 uIU/mL (0.465-4.68)
[2023-05-18 14:09] LABS: Vitamin B12 > 1000 pg/mL (239-931)
== END ==
PROVIDERS: PCP Physician Assistant; Visit Provider Physician Assistant
DX: E11.9 Type 2 diabetes mellitus without complications (principal); Z00.00 Encounter for general adult medical examination without abnormal findings; E66.9 Obesity, unspecified; Z68.39 Body mass index [BMI] 39.0-39.9, adult; Z79.84 Long term (current) use of oral hypoglycemic drugs; Z79.899 Other long term (current) drug therapy; R79.89 Other specified abnormal findings of blood chemistry
CPT/HCPCS: 36415; 80053; 80061; 82043; 82306; 82570; 82607; 83036; 84443; 85025

== ENCOUNTER 2023-11-30 12:56 | Outpatient (CLI) | payer BC, SELFPAY ==
[2023-11-30 13:11] LABS: Chloride 105 mmol/L (98-107); Potassium 4.2 mmoL/L (3.5-5.1); Sodium 138 mmol/L (136-145)
[2023-11-30 13:12] LABS: Basophils % 0.5 % (0.1-2.0); Eosinophils # 0.1 K/mm3 (0.0-0.4); Eosinophils % 1.5 % (0.1-12.0); Hematocrit 41.9 % (37.0-47.0); Hemoglobin 14.5 g/dL (12.2-16.2); Lymphocytes # 2.1 K/mm3 (0.7-4.5); Lymphocytes % 25.7 % (10-50); Mean Corpuscular HGB Conc 34.5 g/dL (31.8-35.4); Mean Corpuscular Volume 89.7 fl (81-99); Mean Platelet Volume 9.1 fl (7.4-10.4); Monocytes # 0.5 K/mm3 (0.1-1.0); Monocytes % 5.7 % (1.7-9.3); Neutrophils # 5.4 K/mm3 (1.8-7.8); Neutrophils % 66.6 % (37.0-80.0); Platelet Count 342 K/mm3 (142-424); Red Blood Count 4.67 M/mm3 (4.20-5.40); White Blood Count 8.1 K/mm3 (4.8-10.8)
[2023-11-30 13:14] LABS: Alanine Aminotransferase 54 U/L (12-78); Albumin Level 4.7 g/dl (3.5-5.0); Albumin/Globulin Ratio 1.6 (1.1-1.8); Alkaline Phosphatase 130 U/L (38-126); Anion Gap 13.2 mEq/L (5-15); Aspartate Amino Transferase 56 U/L (14-36); Bilirubin,Total 0.7 mg/dl (0.2-1.3); Blood Urea Nitrogen 17 mg/dl (7-17); Calcium 9.5 mg/dl (8.4-10.2); Carbon Dioxide 24 mmol/L (22.0-30.0); Cholesterol 216 mg/dl (140-200); Estimated Glomerular Filt Rate 129 ml/min (>60); GFR (African American) 156 ML/MIN (>60); Globulin 2.9 g/dL (1.3-3.2); Glucose 131 mg/dl (74-100); Total Protein,Serum 7.6 g/dl (6.3-8.2); Triglycerides 136 mg/dl (30-150); VLDL Cholesterol 27 mg/dL (0-40)
[2023-11-30 13:15] LABS: Chol/HDL Ratio 6.4 (1-3.5); HDL Cholesterol 34 mg/dl (40-60)
[2023-11-30 13:25] LABS: Direct LDL Cholesterol 138.65 mg/dL (100-129)
[2023-11-30 13:33] LABS: 25-OH Vitamin D, Total 74.2 ng/mL (30-100)
[2023-11-30 14:51] LABS: Thyroid Stimulating Hormone 2.26 uIU/mL (0.465-4.68)
[2023-11-30 15:15] LABS: Vitamin B12 > 1000 pg/mL (239-931)
[2023-11-30 21:44] LABS: Hemoglobin A1C 7.1 % (4.0-6.0)
== END 2023-11-30 23:59 ==
LOC: LAB.DROPOF 12:56
PROVIDERS: PCP Physician Assistant; Visit Provider Physician Assistant
DX: E11.9 Type 2 diabetes mellitus without complications (principal); E66.9 Obesity, unspecified; Z68.39 Body mass index [BMI] 39.0-39.9, adult; Z79.84 Long term (current) use of oral hypoglycemic drugs; Z79.899 Other long term (current) drug therapy
CPT/HCPCS: 80053; 80061; 82306; 82607; 83036; 84443; 85025

== ENCOUNTER 2024-05-25 10:04 | Emergency (ER) | payer BC, SELFPAY ==
[2024-05-25 10:06] VITALS: BP 209/98; PULSE 79; RESP 16; TEMP 36.7; O2SAT 95; BMI 38.9
--- NOTE | 2024-05-25 10:27 | US_ITS ---
PROCEDURE: US TRANSVAGINAL CLINICAL INDICATION: LLQ pain COMPARISON: US US TRANSVAGINAL from 11/29/2022 FINDINGS: Transvaginal sonographic images of the pelvis were obtained. UTERUS: 7.9 cm x 6.1cmx 4.2cm anteverted with a combined endometrial thickness of 3mm. There is a scar. There is a small amount of fluid in the fundus and lower uterine segment/upper cervix There is small nabothian cyst in the cervix. LEFT OVARY: 3.1cmx1.9 cmx2.0cm with a volume of 6.1ml. RIGHT OVARY: Could not be seen secondary to bowel. There is a small calcified nodule in measuring 5.1 mm in the right adnexa. Left ovary is seen and appears normal. Doppler flow to left ovary is seen. There is trace fluid in the cul-de-sac. IMPRESSION: 1. Anteverted uterus normal in shape and size. The endometrium is thin measuring 3.0 mm. 2. There is a small amount of fluid within the endometrium at fundus of the uterus as well as the lower uterine segment/upper cervix. 3. The right ovary is not visualized but there is a small 5 mm calcified nodule on the right side. 4. The left ovary is seen and appears atrophic. There is Doppler flow to the left ovary. 5. There is trace fluid in the cul-de-sac Dictated by: Artemio Biswas MD 05/25/2024 11:58 Artemio Biswas MD in [place] 05/25/2024 11:58
--- NOTE | 2024-05-25 10:27 | CT_ITS ---
FINAL REPORT TECHNIQUE: Postcontrast axial images through the abdomen and pelvis were performed. This study was performed with techniques to keep radiation doses as low as reasonably achievable, (ALARA). Individualized dose reduction techniques using automated exposure control or adjustment of mA and/or kV according to the patient's size were employed. CLINICAL HISTORY: LLQ pain COMPARISON: 11/29/2022 FINDINGS: Abdomen: The lung bases are clear. There is mild fatty infiltration of the liver. The spleen is unremarkable. The adrenals are normal. The pancreas is unremarkable. The kidneys enhance appropriately. The aorta is normal in caliber. No free fluid or adenopathy is identified. No findings for mechanical bowel obstruction are identified. Pelvis: The appendix is not identified. Right ovarian cyst measures 25 mm. There is a 20 mm soft tissue focus in the anterior lower pelvis well seen on image 93. It is uncertain if this represents subserosal fibroid or diverticulum extending from the superior aspect of the bladder versus other mass. No free fluid, free air, abscess or adenopathy is identified. IMPRESSION: Soft tissue focus in the left lower pelvis as detailed above. Pelvic ultrasound may be helpful. Reviewed, Interpreted and Dictated by Juan Welsh III, MD Transcribed by Nida Fields Authenticated and . [facility]
[2024-05-25 10:43] LABS: Albumin Level 4.7 g/dl (3.5-5.0); Chloride 109 mmol/L (98-107); Sodium 141 mmol/L (136-145)
[2024-05-25 10:44] LABS: Potassium 4.1 mmoL/L (3.5-5.1)
[2024-05-25 10:46] LABS: Alanine Aminotransferase 59 U/L (12-78); Alkaline Phosphatase 107 U/L (38-126); Anion Gap 12.1 mEq/L (5-15); Aspartate Amino Transferase 65 U/L (14-36); Bilirubin,Total 0.8 mg/dl (0.2-1.3); Blood Urea Nitrogen 24 mg/dl (7-17); Carbon Dioxide 24 mmol/L (22.0-30.0); Creatinine Clearance Estimated 169 mL/min (50-200); Estimated Glomerular Filt Rate 104 ml/min (>60); GFR (African American) 126 ML/MIN (>60)
[2024-05-25 10:47] LABS: Albumin/Globulin Ratio 1.6 (1.1-1.8); Calcium 9.3 mg/dl (8.4-10.2); Glucose 216 mg/dl (74-100); Lipase 117 U/L (23-300); Total Protein,Serum 7.7 g/dl (6.3-8.2)
[2024-05-25 10:48] LABS: Basophils # 0.1 K/mm3 (0-0.2); Basophils % 0.7 % (0.1-2.0); Eosinophils # 0.1 K/mm3 (0.0-0.4); Eosinophils % 2.2 % (0.1-12.0); Hematocrit 43.1 % (37.0-47.0); Hemoglobin 14.5 g/dL (12.2-16.2); Lymphocytes % 31.2 % (10-50); Mean Corpuscular HGB Conc 33.6 g/dL (31.8-35.4); Mean Corpuscular Hemoglobin 30.8 pg (27.0-31.2); Mean Corpuscular Volume 91.5 fl (81-99); Monocytes # 0.3 K/mm3 (0.1-1.0); Monocytes % 4.9 % (1.7-9.3); Neutrophils # 3.9 K/mm3 (1.8-7.8); Platelet Count 310 K/mm3 (142-424); Red Blood Count 4.71 M/mm3 (4.20-5.40); White Blood Count 6.4 K/mm3 (4.8-10.8)
[2024-05-25 10:49] LABS: HCG Qualitative, Serum Negative (Negative)
[2024-05-25 10:54] LABS: Lactic Acid 2.1 mmol/L (0.7-2.1)
[2024-05-25] MEDS: KETOROLAC 30MG/ML VIAL 15 MG IV (11:09)
[2024-05-25] MEDS: ONDANSETRON 4MG/2ML VIAL 4 MG IV (11:09)
[2024-05-25] MEDS: ACETAMINOPHEN 1,000MG/100ML VIAL 1000 MG IV (11:10)
[2024-05-25] MEDS: LACTATED RINGERS 1000ML 1,000 ML 999 ML IV (11:10)
[2024-05-25] MEDS: IOPAMIDOL-370 (76%);100ML BOTTLE 75 ML IV (11:24)
[2024-05-25] MEDS: SODIUM CHLORIDE 0.9% 10ML SYR (RAD ONLY) 10 ML IV (11:24)
--- NOTE | 2024-05-25 11:28 | HMH.EDGENADL ---
Discharge Plan Disposition Patient Disposition: Home, Self-Care Condition: Good Prescriptions Prescriptions: New methocarbamol 750 mg tablet 750 mg PO Q8H PRN (Reason: pain) Qty: 20 0RF ketorolac 10 mg tablet 10 mg PO Q8H PRN (Reason: pain) Qty: 12 0RF lidocaine [Lidoderm] 5 % adhesive patch,medicated 1 patch topical DAILY Qty: 15 0RF Rx Instructions: leave on most painful area for up to 12 hrs No Action cholecalciferol (vitamin D3) 2,000 unit capsule 2,000 unit PO DAILY omeprazole 20 mg capsule,delayed release(DR/EC) 20 mg PO DAILY Centrum Silver Women 8 mg iron-400 mcg-300 mcg tablet 1 tab PO DAILY cyanocobalamin (vitamin B-12) 1,000 mcg capsule 1,000 mcg PO DAILY glipizide 10 mg tablet extended release 24hr 10 mg PO DAILY Qty: 90 3RF aspirin 81 mg tablet,delayed release (DR/EC) 81 mg PO DAILY lysine 500 mg tablet 500 mg PO DAILY naproxen 500 mg tablet 500 mg PO BID PRN (Reason: pain) Qty: 60 2RF lisinopril 10 mg tablet See Rx Instructions .ROUTE .COMPLEX Qty: 90 3RF Dose Instruction: TAKE 1 TABLET BY MOUTH ONCE DAILY FOR HIGH BLOOD PRESSURE Rx Instructions: TAKE 1 TABLET BY MOUTH ONCE DAILY FOR HIGH BLOOD PRESSURE furosemide 40 mg tablet See Rx Instructions .ROUTE .COMPLEX Qty: 90 3RF Dose Instruction: TAKE 1 TABLET BY MOUTH ONCE DAILY FOR FLUID AND BLOOD PRESSURE Rx Instructions: TAKE 1 TABLET BY MOUTH ONCE DAILY FOR FLUID AND BLOOD PRESSURE fenofibrate 160 mg tablet See Rx Instructions .ROUTE .COMPLEX Qty: 90 3RF Dose Instruction: TAKE 1 TABLET BY MOUTH ONCE DAILY FOR CHOLESTEROL Rx Instructions: TAKE 1 TABLET BY MOUTH ONCE DAILY FOR CHOLESTEROL potassium chloride 10 mEq tablet extended release See Rx Instructions .ROUTE .COMPLEX Qty: 90 0RF Dose Instruction: TAKE 1 TABLET BY MOUTH ONCE DAILY Rx Instructions: TAKE 1 TABLET BY MOUTH ONCE DAILY propranolol 120 mg capsule,extended release 24hr See Rx Instructions .ROUTE .COMPLEX Qty: 30 1RF Dose Instruction: TAKE 1 CAPSULE BY MOUTH ONCE DAILY Rx Instructions: TAKE 1 CAPSULE BY MOUTH ONCE DAILY Referrals Follow up/Referrals: Juan Antoine MD [Staff Physician] - See instructions Artemio Biswas MD [Staff Physician] - See instructions Sherrie Leal PA [Primary Care Provider] - See instructions Fabrice Lux MD [Staff Physician] - See instructions Jose Ambrose MD [Staff Physician] - See instructions Activity Restrictions/Add. Instructions Additional Instructions/Restrictions: You were evaluated in the emergency department today. At this time, it is unclear what exactly is causing your pain, but you do have some abnormalities to the imaging of your lower abdomen. The pain could be referred from your low back since you have a history of some low back pain and issues. Given the cyclic nature of your symptoms, I recommend close follow-up with PHYSICS TECHNICAL OFFICER for further evaluation and management. You were found to have a soft tissue focus in your lower pelvis, which could be a fibroid or small diverticulum, for which I recommend close follow-up as well. We are providing you with information for both general surgery as well as urology to determine whether or not you need further imaging/workup for this. I also recommend close follow-up with your primary care provider. 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 Do not take naproxen/Aleve or any other NSAIDs with Toradol. you may also take Tylenol every 4-6 hours as needed for pain. Return to the emergency department right away for new or worsening symptoms. Clinical Impressions Clinical Impression: Low back pain, Abdominal pain, LLQ, Abdominal mass, LLQ (left lower quadrant), Diverticulum of bladder Stand Alone Forms Stand Alone Forms: Work/School Release Instructions Patient Instructions: DI for Low Back Pain, DI for Acute Abdominal Pain Print Language Print Language: Qatari Discharge ED Provider: Elin Bertrand General Adult HPI General Chief complaint: Abdominal Pain Stated complaint: Pain in L side of abdomen Time Seen by Provider: 05/25/24 10:18 Mode of Arrival: Ambulatory Source of Information: Patient Limitations: No Limitations Description of Symptoms (Recalled from ER Triage Doc. by RN): Patient reports that she was supposed to have an appointment with Dr. Biswas today related to left lower abdomen pain that radiates to her back. States that she called him today and he suggested for her to come to the ER for further evaluation. States she has had this pain off and on for awhile now and doesn't know if it is related to her cysts she already knows about. History of Present Illness HPI narrative: This patient is a 54-year-old female with a history of hypertension, diabetes, prior C-sections and tubal ligation, and history of endometrial ablation presented to the emergency department for evaluation with concern for left lower quad abdominal pain. She states she has been intermittently getting this pain whenever she supposed to be having a period, but she believes that she is going through menopause as her periods been irregular. She notes that she does have a history of ovarian cyst, but she thinks that the last that she had was on the right side as opposed to the left. She notes she is having nausea but no vomiting. No fevers, chills, changes in bowel movements, vaginal discharge, vaginal bleeding, urinary symptoms, or other concerns. The pain is severe and constant radiates into her back. She called gynecology office today to see if she get evaluated, and they advise she come to the ER Related Data Home Medications ?Medication ?Instructions ?Recorded ?Confirmed omeprazole 20 mg capsule,delayed 20 mg PO DAILY GERD 10/02/18 11/30/23 release cholecalciferol (vitamin D3) 50 2,000 unit PO DAILY Supplement 11/01/18 11/30/23 mcg (2,000 unit) capsule [id number] 8 mg-folic 400 1 tab PO DAILY Supplement 11/14/19 11/30/23 mcg-K 50 mcg-lutein 300 mcg tablet (Centrum Silver Women) cyanocobalamin (vitamin B-12) 1,000 mcg PO DAILY Supplement 08/27/20 11/30/23 1,000 mcg capsule aspirin 81 mg tablet,delayed 81 mg PO DAILY heart health 11/30/20 11/30/23 release lysine 500 mg tablet 500 mg PO DAILY 09/08/22 11/30/23 Previous Rx's ?Medication ?Instructions ?Recorded naproxen 500 mg tablet 500 mg PO BID PRN pain #60 tabs 12/08/22 fenofibrate 160 mg tablet See Rx Instructions .Route 07/31/23 .COMPLEX #90 tabs furosemide 40 mg tablet See Rx Instructions .Route 07/31/23 .COMPLEX #90 tabs lisinopril 10 mg tablet See Rx Instructions .Route 07/31/23 .COMPLEX #90 tabs glipizide 10 mg tablet, extended 10 mg PO DAILY #90 tabs 11/30/23 release 24 hr potassium chloride 10 mEq See Rx Instructions .Route 02/29/24 tablet,extended release .COMPLEX #90 tabs propranolol 120 mg capsule,24 See Rx Instructions .Route 04/14/24 hr,extended release .COMPLEX #30 caps ketorolac 10 mg tablet 10 mg PO Q8H PRN pain #12 tabs 05/25/24 lidocaine 5 % topical patch 1 patch topical DAILY #15 ea 05/25/24 (Lidoderm) methocarbamol 750 mg tablet 750 mg PO Q8H PRN pain #20 tabs 05/25/24 Allergies Allergy/AdvReac Type Severity Reaction Status Date / Time Penicillins [PENICILLINS] Allergy Unknown Verified 11/30/23 09:33 Kflazmy-PYX-KuQ Reductase AdvReac Intermediate myalgias Verified 11/30/23 09:33 Inhibitor PFSH PFS Disclaimer: The information contained in this section may have been updated after the patient was seen, as this information can be updated by other users. 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 caffeine: Yes ROS Obtained: Yes All systems reviewed & no additional complaints except as documented Physical Exam General General appearance: alert Comment: uncomfortable appearing Head Head exam: atraumatic and normocephalic Eye Eye exam: Present normal appearance, PERRL and EOMI ENT ENT exam: Present normal exam, normal oropharynx, mucous membranes moist and normal external ear exam Neck Neck exam: Present normal inspection, full ROM and trachea midline; Absent tenderness Chest Chest inspection: Present normal inspection and symmetric chest wall rise; Absent tenderness Respiratory Respiratory exam: Present normal lung sounds bilaterally; Absent respiratory distress, wheezes, stridor or accessory muscle use Cardiovascular Cardiovascular exam: Present regular rate and normal rhythm Abdominal Exam Abdominal exam: Present soft and tenderness (LLQ); Absent distention or guarding Extremities Exam Extremities exam: Present normal inspection, full ROM and normal capillary refill; Absent tenderness or edema Back Exam Back exam: Present normal inspection and full ROM; Absent tenderness Neurological Exam Neurological exam: Present alert, oriented X3, CN II-XII intact and normal gait; Absent motor sensory deficit Psychiatric Psychiatric exam: Present normal affect and normal mood Skin Skin exam: Present warm and dry Medical Decision Making Medical Records Medical records reviewed: Yes I reviewed the patient's medical records. Petr Inquiry Pt receiving controlled substance: No Vital Signs: 05/25/24 10:06 05/25/24 14:43 Temperature 98.0 F 98.0 F Temperature Source Oral Oral Pulse Rate 82 Pulse Rate [Radial] 79 Respiratory Rate 16 16 Blood Pressure 176/90 H Blood Pressure [Right Arm] 209/98 H Blood Pressure Mean [Right Arm] 135 Blood Pressure Source Automatic Cuff Blood Pressure Source [Right Arm] Automatic Cuff Blood Pressure Position Sitting Blood Pressure Position [Right Arm] Sitting 02 Sat by Pulse Oximetry 95 Oxygen Delivery Method Room Air Room Air Lab Data Lab results reviewed: Yes I reviewed the patient's lab results. Lab Results 05/25/24 10:25: WBC 6.4, RBC 4.71, Hgb 14.5, Hct 43.1, MCV 91.5, MCH 30.8, MCHC 33.6, RDW 14.0, Plt Count 310, MPV 9.0, Neut % (Auto) 61.0, Lymph % (Auto) 31.2, [place] % (Auto) 4.9, Eos % (Auto) 2.2, Baso % (Auto) 0.7, Neut # (Auto) 3.9, Lymph # (Auto) 2.0, [place] # (Auto) 0.3, Eos # (Auto) 0.1, Baso # (Auto) 0.1, Sodium 141, Potassium 4.1, Chloride 109 H, Carbon Dioxide 24, Anion Gap 12.1, BUN 24 H, Creatinine 0.60, Estimated Creat Clear 169, Estimated GFR 104, Est GFR ( Amer) 126, Glucose 216 H, Lactate 2.1, Calcium 9.3, Total Bilirubin 0.8, AST 65 H, ALT 59, Alkaline Phosphatase 107, Total Protein 7.7, Albumin 4.7, Globulin 3.0, Albumin/Globulin Ratio 1.6, Lipase 117, Serum HCG, Qual Negative 05/25/24 13:50: Urine Color Yellow, Urine Appearance Clear, Urine pH 7.0, Ur Specific Alkol 1.010, Urine Protein Negative, Urine Glucose (UA) Negative, Urine Ketones Negative, Urine Blood Negative, Urine Nitrate Negative, Urine Bilirubin Negative, Urine Urobilinogen 0.2, Ur Leukocyte Esterase Negative, Urine RBC None, Urine WBC Occasional, Ur Squamous Epith Cells 3-5, Urine Bacteria Trace 05/25/24 10:25 05/25/24 10:25 Orders (Tests/Meds): ED MEDICATIONS Discontinued Medications Generic Name Dose Route Start Last Admin Trade Name Freq PRN Reason Stop Dose Admin Acetaminophen 1,000 mg 05/25/24 10:37 05/25/24 11:10 Acetaminophen 1,000mg/100ml Vial IV 05/25/24 10:38 1,000 mg ONCE ONE Administration Lactated Ringer's 1,000 mls @ 999 mls/hr 05/25/24 10:37 05/25/24 11:10 Lactated Ringer's 1000 Ml Bag IV 05/25/24 11:37 999 mls/hr .Q1H1M ONE Administration Iopamidol 75 ml 05/25/24 11:23 05/25/24 11:24 Iopamidol-370 (76%);100ml Bottle IV 05/25/24 11:24 75 ml ONCE ONE Administration Ketorolac Tromethamine 15 mg 05/25/24 10:37 05/25/24 11:09 Ketorolac 30mg/Ml Vial IV 05/25/24 10:38 15 mg ONCE ONE Administration Lidocaine 1 each 05/25/24 14:08 05/25/24 14:11 Lidocaine 5% Transdermal Patch TP 05/25/24 14:09 1 each ONCE ONE Administration Methocarbamol 500 mg 05/25/24 14:08 05/25/24 14:11 Methocarbamol 500mg Tablet PO 05/25/24 14:09 500 mg ONCE ONE Administration Ondansetron HCl 4 mg 05/25/24 10:37 05/25/24 11:09 Ondansetron 4mg/2ml Vial IV 05/25/24 10:38 4 mg ONCE ONE Administration Sodium Chloride 10 ml 05/25/24 10:36 Sodium Chloride 0.9% 10ml Flush Syringe IV 06/24/24 10:35 NEEDED PRN Maintain IV Site Sodium Chloride 10 ml 05/25/24 11:23 05/25/24 11:24 Sodium Chloride 0.9% 10ml Syr (Rad Only) IV 05/25/24 11:24 10 ml ONCE ONE Administration ORDERS Category Date Time Status CT abdomen pelvis w con Stat Cat Scan 05/25/24 10:27 Completed US transvaginal Stat Exams 05/25/24 10:27 Completed CBC w/Auto Diff [Complete Blood Count Auto Diff] Stat Lab 05/25/24 10:25 Completed CMP [Comprehensive Metabolic Panel] Stat Lab 05/25/24 10:25 Completed Lactic Acid Stat Lab 05/25/24 10:25 Completed Lipase Stat Lab 05/25/24 10:25 Completed Serum [HCG Qualitative, Serum] Stat Lab 05/25/24 10:25 Completed UA [Urinalysis and Microscopic] Stat Lab 05/25/24 13:50 Completed Medical Decision Narrative: In summary, this patient is a 54-year-old female presenting to the Emergency Department for evaluation of left lower quadrant abdominal pain. Differential diagnoses considered include but are not limited to ovarian cyst, ovarian torsion, ovarian mass, diverticulitis, colitis. Ruling out the most morbid conditions drove assessment. It should be noted patient's history includes hypertension, diabetes which may or may not be at goal therapy. This complicates all aspects of care by increasing patient's risk for morbidity. On exam, the patient is mildly uncomfortable appearing with left lower quadrant tenderness, but no rebound or guarding. Vitals are reassuring on cardiac telemetry with the exception of hypertension, likely related to pain. Workup included CBC, CMP, lipase, lactic acid, urinalysis, test, transvaginal ultrasound, and CT abdomen pelvis with IV contrast. She is given a bolus of IV fluids as well as IV Toradol and oral Tylenol for symptomatic improvement. Per the radiology read of the patient's CT scan, she has a soft tissue mass that they are not sure exactly what it is in the left lower quadrant. They also note that it could be potentially a bladder diverticulum versus a subserosal fibroid. They recommended pelvic ultrasound, which was ordered. I had an interactive discussion with Dr. Jordan with PHYSICS TECHNICAL OFFICER who read the pelvic ultrasound and he stated that they could have been seeing her left ovary, but he is not 100% sure. He would recommend surgical evaluation depending on how the patient's symptoms are. He states that he feels its likely not gynecologic based on her ultrasound. Labs are reassuring without acutely concerning abnormalities. Urine is clean without concerns for infection. On reassessment, the patient is feeling better and is not having significant abdominal pain, but she is having some mild nondescript low back pain. She states that she has had low back pain with radiculopathy in the past, so it is possible her symptoms could be referred, however unclear exactly what this soft tissue mass/lesion is that they are calling on CT scan. Ultimately since her symptoms have improved and I feel we have excluded life-threatening or surgical pathology, I feel she is appropriate with outpatient discharge and referral. She was given prescriptions for Robaxin, Lidoderm patch, and NSAID to treat pain. I gave her information regarding all the findings and instructed her to follow-up closely outpatient. She was given information for local general surgeons, urologist, and gynecology to help facilitate follow-up and definitive diagnosis. She was discharged with strict return precautions after all questions were answered. Critical Care Critical Care Time Critical Care Time: No
[2024-05-25 13:58] LABS: Microscopic, Urine URINE MICROSCOPIC (MICROSCOPIC)
[2024-05-25 14:05] LABS: Appearance,Urine CLEAR (Clear); Bilirubin,Urine Negative (Negative); Blood, Urine Negative (Negative); Color,Urine YELLOW (Yellow); Glucose,Urine (UA) Negative (Negative); Ketones,Urine Negative (Negative); Leukocyte Esterase,Urine Negative (Negative); Nitrate,Urine Negative (Negative); Protein,Urine Negative (Negative); Urobilinogen,Urine 0.2 EU/dl (0.2)
[2024-05-25] MEDS: LIDOCAINE 5% TRANSDERMAL PATCH 1 EACH TP (14:11)
[2024-05-25] MEDS: METHOCARBAMOL 500MG TABLET 500 MG PO (14:11)
[2024-05-25 14:31] LABS: Reflex Lactic Add Lactic Reflex
[2024-05-25 14:41] LABS: Bacteria,Urine Trace /lpf; WBC,Urine Occasional #/hpf (0-3)
[2024-05-25 14:43] VITALS: BP 176/90; PULSE 82; RESP 16; TEMP 36.7; O2SAT 96
== END 2024-05-25 14:43 | disposition home or self-care (01) ==
PROVIDERS: Emergency Provider Emergency Medicine; PCP Physician Assistant
DX: R10.32 Left lower quadrant pain (principal); M54.59 Other low back pain; R19.04 Left lower quadrant abdominal swelling, mass and lump; N32.3 Diverticulum of bladder; E11.65 Type 2 diabetes mellitus with hyperglycemia; I10 Essential (primary) hypertension; Z79.84 Long term (current) use of oral hypoglycemic drugs
CPT/HCPCS: 74177; 76830; 80053; 81001; 83605; 83690; 84703; 85025; 96361; 96374; 96375; 99285; J0131; J1885; J2405; J7120; Q9967

== ENCOUNTER 2024-06-17 09:43 | Outpatient (CLI) | payer BC, SELFPAY ==
[2024-06-17 10:16] LABS: Basophils # 0.1 K/mm3 (0-0.2); Basophils % 0.8 % (0.1-2.0); Eosinophils # 0.1 K/mm3 (0.0-0.4); Eosinophils % 1.5 % (0.1-12.0); Hematocrit 42.2 % (37.0-47.0); Lymphocytes # 1.7 K/mm3 (0.7-4.5); Lymphocytes % 20.7 % (10-50); Mean Corpuscular HGB Conc 33.3 g/dL (31.8-35.4); Mean Corpuscular Hemoglobin 30.3 pg (27.0-31.2); Mean Corpuscular Volume 91.2 fl (81-99); Mean Platelet Volume 8.7 fl (7.4-10.4); Monocytes # 0.4 K/mm3 (0.1-1.0); Neutrophils % 72.1 % (37.0-80.0); Platelet Count 307 K/mm3 (142-424); Red Blood Count 4.63 M/mm3 (4.20-5.40); White Blood Count 8.3 K/mm3 (4.8-10.8)
[2024-06-17 12:22] LABS: Chloride 110 mmol/L (98-107)
[2024-06-17 12:23] LABS: Albumin Level 4.6 g/dl (3.5-5.0); Potassium 4.2 mmoL/L (3.5-5.1); Sodium 140 mmol/L (136-145)
[2024-06-17 12:25] LABS: Alanine Aminotransferase 54 U/L (12-78); Anion Gap 11.2 mEq/L (5-15); Aspartate Amino Transferase 58 U/L (14-36); Blood Urea Nitrogen 18 mg/dl (7-17); Carbon Dioxide 23 mmol/L (22.0-30.0); Estimated Glomerular Filt Rate 129 ml/min (>60); GFR (African American) 156 ML/MIN (>60)
[2024-06-17 12:26] LABS: Albumin/Globulin Ratio 1.7 (1.1-1.8); Alkaline Phosphatase 91 U/L (38-126); Bilirubin,Total 1.1 mg/dl (0.2-1.3); Calcium 9.4 mg/dl (8.4-10.2); Globulin 2.7 g/dL (1.3-3.2); Glucose 165 mg/dl (74-100); Total Protein,Serum 7.3 g/dl (6.3-8.2)
[2024-06-17 12:50] LABS: HCG,Quantitative < 2 mIU/ml (0-5.42)
== END 2024-06-17 23:59 | disposition home or self-care (01) ==
LOC: LAB 09:44
PROVIDERS: PCP Physician Assistant; Visit Provider Obstetrics & Gynecology
DX: R19.04 Left lower quadrant abdominal swelling, mass and lump (principal)
CPT/HCPCS: 36415; 80053; 84702; 85025

== ENCOUNTER 2024-06-22 06:05 | Day surgery (SDC) | payer BC, SELFPAY ==
[2024-06-22] VITALS (10 sets, daily range): BP systolic 113–167; BP diastolic 63–76; PULSE 60–99; RESP 16–24; TEMP -8.8–36.5; O2SAT 94–100; BMI 39.8; BMI 38.9
[2024-06-22] MEDS: ACETAMINOPHEN 500MG TAB 1000 MG PO (06:35)
[2024-06-22] MEDS: LACTATED RINGERS 1000ML 1,000 ML 25 ML IV (06:48)
[2024-06-22] MEDS: LIDOCAINE 1% W/EPI 1:100,000 20ML VIAL 20 ML ×2 (08:30→08:32)
--- NOTE | 2024-06-22 08:57 | P.PNANES_ITS ---
[facility] Anesthesia Record Part I Anesthesia Record I Intake, IV Amount: 900 Hydration: Adequate Estimated blood loss (mL): 5 Urine output (mL): 50 Blood Products used (#): none Blood Pressure: 132/74 SaO2: 94 Pulse Rate: 61 Airway Patency: Patent Respiratory Rate: 16 Temperature: 16 F Patient is:: Drowsy and Stable
[2024-06-22 09:05] LABS: POC Glucose,Bedside 177 (70-110)
--- NOTE | 2024-06-22 09:10 | P.OP_ITS ---
Date of procedure: 06/22/24 Pre-op Diagnosis:: 1. LLQ abdominal pain 2. Morbid obesity 3. Lower back pain 4. Anxiety 5. Hypertension Post-op Diagnosis:: 1. LLQ abdominal pain 2. Morbid obesity 3. Lower back pain 4. Anxiety 5. Hypertension Procedure performed:: 1. Attempted D&C unsuccessful secondary to cervical stenosis s/p endometrial ablation 2. Diagnostic laparoscopy, removal of possible fecalith, excision of right paratubal cyst Surgeon:: Loulou Juárez DO Manager Student Services(s):: N/a INDUSTRIAL TECHNOLOGY EDUCATION TEACHER:: Quan Bran Anesthesia: GETA Estimated blood loss (mL): 5 Clinical Note:: Nia presents for preop visit. She complains of LLQ abdominal pain that has been present for the past 3-4 months and occurs at the beginning of the month like a period would but without the bleeding. She states pain can last 1-2 weeks and then stops until the next month. The pain has been getting worse each month. She went to the ED on 05/[address] scan of pelvis demonstrated: appendix is not identified. Right ovarian cyst measures 25 mm. There is a 20 mm soft tissue focus in the anterior lower pelvis well seen on image 93. It is uncertain if this represents subserosal fibroid or diverticulum extending from the superior aspect of the bladder versus other mass. No free fluid, free air, abscess or adenopathy is identified. Pelvic ultrasound 05/25 demonstrated anteverted uterus normal in shape and size. The endometrium is thin measuring 3.0 mm. 2. There is a small amount of fluid within the endometrium at fundus of the uterus as well as the lower uterine segment/upper cervix. 3. The right ovary is not visualized but there is a small 5 mm calcified nodule on the right side. 4. The left ovary is seen and appears atrophic. There is Doppler flow to the left ovary. 5. There is trace fluid in the cul-de-sac. She took pain medicine this morning with some relief. She also reports history of hip, knee pain, low back pain/degenerative disc disease with radiculopathy, HTN, diabetes and anxiety. History of endometrial ablation 02/18/2021. History of tubal ligation 16 years ago with her last . History of x 2. She had some bleeding August 2022-November 2022. No bleeding since November 2022. She admits to hot flashes and night sweats. She admits to constipation but daily BMs. Denies bladder complaints. Operative findings:: 1. On bimanual exam, uterus is normal size and shape, retroverted. No adnexal masses palpated 2. On laparoscopic exam liver, gallbladder, stomach and intestines appear grossly normal. Uterus retroverted with posterior right nodule noted (possibly calcified fibroid), a few small clear blebs on left posterior side of uterus consistent with endometriosis. Portion of bilateral fallopian tubes absent s/p sterilization. Right paratubal cyst measuring about 3 cm noted. Small possible fecalith floating in the posterior cul-de-sac. Operative note:: Risks, benefits and alternatives were discussed with the patient. Risks include but are not limited to bleeding, infection, damage to adjacent structures and VTE. Patient voiced understanding and agreed to proceed with surgery. She was wheeled back to the operating room and placed under general anesthesia without difficulty. She was placed in the dorsal lithotomy position and prepped and draped in normal sterile fashion. A straight catheter was used to drain the bladder. A bimanual exam was performed. A weighted Auvard was placed in the vaginal vault. A single tooth tenaculum was placed on the anterior lip of the cervix. Attempted to dilate cervical canal with Dave dilators. But dilation was unsuccessful secondary to cervical stenosis s/p endometrial ablation. Nankin manipulator was inserted into the cervical canal and attached to the tenaculum. Weighted Auvard was removed from the vagina. Attention was then turned to the abdomen. Skin just below the umbilicus was injected with 0.5% marcaine. A 1.5cm infraumbilical incision was made. Veress needle was tested and inserted intrabdominally. Opening pressure was 4 mm Hg. The peritoneal cavity was insulflated to 15 mm Hg. Laparoscope within 11 mm blunt trocar was inserted intrabdominally under direct visualization. Obturator was removed and sleeve left in place. Laparoscope was inserted into the trocar sleeve. Abdomen and pelvis was viewed in its entirety. Examination of the peritoneal cavity revealed no signs of injury from entry and normal anatomic structures. See findings above. Pictures were taken. Bowel was swept cephalad with blunt probe. LLQ port site was transilluminated and injected with 0.5% marcaine. A 1.5 cm incision was made and 11 mm trocar was inserted intraabdominally under direct laparoscopic visualization. Obturator was removed and sleeve was left in place. RLQ was transilluminated and injected with 0.5% marcaine. A 5 mm incision was made and 5 mm trocar was inserted intraabdominally under direct laparoscopic visualization. Obturator was removed and sleeve was left in place. Endocatch was inserted into LLQ trocar and possible fecalith was captured and removed from the body. Specimen will be sent to pathology for review. Attention was then turned to right paratubal cyst. Ligasure was used to excise right paratubal cyst. A new Endocatch bag was inserted through LLQ port and Paratubal cyst was placed inside pouch and removed from the body. Specimen will be sent to pathology for review. Left lower quadrant trocar was removed under direct laparoscopic visualization. Right lower quadrant trocar was removed under direct laparoscopic visualization. Pneumoperitoneum was released into the atmosphere. Infraumbilical trocar was removed under direct laparoscopic visualization to ensure no herniation of bowel or omentum. Skin incisions were reapproximated with 3-0 Vicryl. Dermabond was applied over closed skin incisions. Patient was awakened from anesthesia and taken to recovery in stable condition. Condition: stable Disposition: same day Specimens:: 1. Possible fecalith 2. Right paratubal cyst Complications:: None
--- NOTE | 2024-06-22 11:42 | P.PNANES_ITS ---
[facility] Anesthesia Record Part I Anesthesia Record I Intake, IV Amount: 900 Hydration: Adequate Estimated blood loss (mL): 19 Urine output (mL): 0 Blood Products used (#): none Blood Pressure: 115/63 SaO2: 100 Pulse Rate: 99 Airway Patency: Patent Respiratory Rate: 24 Temperature: 97.7 F Patient is:: Drowsy and Stable
[2024-06-22 13:23] LABS: POC Glucose,Bedside 161 (70-110)
--- NOTE | 2024-06-23 07:24 | EXP.ANES.II ---
[facility] Anesthesia Record Part II Anesthesia Record Part II Discharge Time: 09:20 Destination: Surgical Day Care (OP Surgery) PACU nurse assessment reviewed?: Yes Patient Condition:: Good Anesthesia Complications:: None Swallowing reflex intact?: Yes Airway Patency: Patent Cyanosis?: No Blood Pressure: 144/75 SaO2: 95 Respiratory Rate: 20 Pulse Rate: 60 Temperature: 97.3 F Mental Status: Alert & Oriented Pain level:: 0 Nausea and/or vomitting:: None Intake, IV Amount: 0 Hydration: Adequate
[2024-06-23 07:25] VITALS: BP 144/75; PULSE 60; RESP 20; TEMP 36.3; O2SAT 95
== END 2024-06-22 09:54 | disposition home or self-care (01) ==
PROVIDERS: PCP Physician Assistant; Visit Provider Obstetrics & Gynecology
PROC: (CPT 49320; principal; 2024-06-22 07:30)
DX: R10.32 Left lower quadrant pain (principal); E66.9 Obesity, unspecified; Z68.39 Body mass index [BMI] 39.0-39.9, adult; M54.50 Low back pain, unspecified
CPT/HCPCS: 58120; 58662; 82962; 96374; J3490; J1100; J1885; J2250; J2405; J3010; J7120

== ENCOUNTER 2024-12-12 13:18 | Outpatient (CLI) | payer BC, SELFPAY ==
--- NOTE | 2024-12-12 13:25 | XR_ITS ---
FINAL REPORT CLINICAL HISTORY: knee pain COMPARISON: None FINDINGS: RIGHT KNEE 3 views of the right knee were obtained. There is no acute fracture or dislocation. There are mild tricompartmental degenerative changes, greatest medially. There is no joint effusion. Soft tissues are unremarkable. IMPRESSION: Mild degenerative changes. Reviewed, Interpreted and Dictated by [place] MD Transcribed by Rama Jordan Authenticated and [facility]
--- NOTE | 2024-12-12 13:25 | XR_ITS ---
FINAL REPORT CLINICAL HISTORY: knee pain COMPARISON: none FINDINGS: LEFT KNEE 4 views of the left knee were obtained. There is no acute fracture or dislocation. There are moderate tricompartmental degenerative changes which are most pronounced medially. There is no joint effusion. Soft tissues are unremarkable. IMPRESSION: Moderate degenerative changes. Reviewed, Interpreted and Dictated by Belle Vee MD Transcribed by Rama Jordan Authenticated and [facility]
--- NOTE | 2024-12-12 15:07 | MM_ITS ---
PROCEDURE INFORMATION: Exam: MG Bilateral Screening 3D Mammography Exam date and time: 12/12/2024 3:21 PM Age: 54 years old Clinical indication: Screening examination TECHNIQUE: Imaging protocol: Bilateral Screening tomosynthesis and 2D mammography including computer-aided detection (CAD) when performed. COMPARISON: 1. MG MM DIG SCREENING MAMM BI W/CAD 09/16/2021 10:28 AM 2. MG MM DIG SCREENING MAMM BI W/CAD 09/10/2020 1:07 PM FINDINGS: MAMMOGRAPHY: Breast composition: The breasts are heterogeneously dense, which may obscure small masses. Mass: None. Architectural distortion: None. Calcifications: No suspicious calcifications. Asymmetric density: None. Skin thickening: None. Axillary adenopathy: None. IMPRESSION: No mammographic evidence of malignancy. Annual screening is recommended unless otherwise clinically indicated. ASSESSMENT: BI-RADS Category 1: Negative.
== END 2024-12-12 23:59 | disposition home or self-care (01) ==
LOC: RAD 13:19
PROVIDERS: PCP Physician Assistant; Visit Provider Physician Assistant
DX: M25.561 Pain in right knee (principal); M25.562 Pain in left knee; Z12.31 Encounter for screening mammogram for malignant neoplasm of breast
CPT/HCPCS: 73562; 77063; 77067

== ENCOUNTER 2025-03-20 10:09 | Outpatient (CLI) | payer BC, SELFPAY ==
[2025-03-20 11:10] LABS: Albumin Level 4.9 g/dl (3.5-5.0); Chloride 106 mmol/L (98-107); Potassium 4.4 mmoL/L (3.5-5.1); Sodium 142 mmol/L (136-145)
[2025-03-20 11:13] LABS: Alanine Aminotransferase 57 U/L (12-78); Albumin/Globulin Ratio 1.9 (1.1-1.8); Alkaline Phosphatase 100 U/L (38-126); Anion Gap 14.4 mEq/L (5-15); Aspartate Amino Transferase 54 U/L (14-36); Bilirubin,Total 0.7 mg/dl (0.2-1.3); Blood Urea Nitrogen 22 mg/dl (7-17); Carbon Dioxide 26 mmol/L (22.0-30.0); Estimated Glomerular Filt Rate 128 ml/min (>60); GFR (African American) 155 ML/MIN (>60); Globulin 2.6 g/dL (1.3-3.2); Total Protein,Serum 7.5 g/dl (6.3-8.2)
[2025-03-20 11:14] LABS: Calcium 10.1 mg/dl (8.4-10.2); Glucose 153 mg/dl (74-100)
== END 2025-03-20 23:59 | disposition home or self-care (01) ==
LOC: LAB 10:10
PROVIDERS: PCP Physician Assistant; Visit Provider Obstetrics & Gynecology
DX: R19.04 Left lower quadrant abdominal swelling, mass and lump (principal); R10.32 Left lower quadrant pain; I10 Essential (primary) hypertension
CPT/HCPCS: 36415; 80053

== ENCOUNTER 2025-08-04 16:00 | Outpatient (CLI) | payer BC, SELFPAY ==
[2025-08-04 17:34] LABS: Alanine Aminotransferase 53 U/L (12-78); Albumin Level 4.4 g/dl (3.5-5.0); Albumin/Globulin Ratio 1.9 (1.1-1.8); Alkaline Phosphatase 109 U/L (38-126); Anion Gap 17.3 mEq/L (5-15); Aspartate Amino Transferase 49 U/L (14-36); Bilirubin,Total 0.7 mg/dl (0.2-1.3); Blood Urea Nitrogen 16 mg/dl (7-17); Calcium 9.4 mg/dl (8.4-10.2); Carbon Dioxide 22 mmol/L (22.0-30.0); Chloride 106 mmol/L (98-107); Creatinine,Serum 0.70 mg/dl (0.52-1.04); Estimated Glomerular Filt Rate 87 ml/min (>60); GFR (African American) 105 ML/MIN (>60); Globulin 2.3 g/dL (1.3-3.2); Glucose 205 mg/dl (74-100); Potassium 4.3 mmoL/L (3.5-5.1); Sodium 141 mmol/L (136-145); Total Protein,Serum 6.7 g/dl (6.3-8.2)
== END 2025-08-04 23:59 | disposition home or self-care (01) ==
LOC: LAB 16:00
PROVIDERS: PCP Physician Assistant; Visit Provider Obstetrics & Gynecology
DX: Z79.899 Other long term (current) drug therapy (principal)
CPT/HCPCS: 36415; 80053